=== PATIENT | female | born 1955 | race African-American/Black ===

== ENCOUNTER 2016-07-03 03:13 | Inpatient (IN) | payer MEDICAID ==
[2016-07-03] VITALS (8 sets, daily range): BP systolic 118–168; BP diastolic 74–109; PULSE 71–102; RESP 18–21; TEMP 96–98.8; O2SAT 97–100
[~2016-07-03] VITALS: Ht 152.4 cm; Wt 118.4 kg
[~2016-07-03 03:13] MED LIST: ALBU17AE26 IH; ASPI-1063 PO; ASPI81TA2 PO; BUME1TAB4 PO; BUME2TAB3 PO; COR12.5 PO; DILT180C PO; EZET1TAB35 PO; FURO-149 PO; HYDR-1115 PO; HYDR25TA4 PO; ISOS20TA8 PO; LOSA100T11 PO; LOSA50TA3 PO; METO2.5T6 PO; METO25TA6 PO; POTA20TA83 PO; RANI150T8 PO; SPIR25TA4 PO; losartan PO; metoprolol PO
[2016-07-03] MEDS ORDERED: FUROSEMIDE 40 MG/4 ML VIAL IVP ONE (03:30)
[2016-07-03] MEDS ORDERED: AZITHROMYCIN 500 MG in NS 250 ML IV ONE (04:00)
[2016-07-03 04:15] LABS: BLOOD GAS PH 7.468 (7.350-7.450)
[2016-07-03 04:16] LABS: ABG TOTAL HEMOGLOBIN 13.5 G/dL (12.0-18.0); BLOOD GAS BASE EXCESS -4.2 mmol/L (-3.0-3.0)
[2016-07-03 04:17] LABS: BLOOD GAS COHb% 0.8 % (0.5-1.5); BLOOD GAS HHB 1.6 % (0.0-6.0); BLOOD O2Hb% 97.3 % (94.0-97.0)
[2016-07-03 04:25] LABS: CALCIUM 8.7 mg/dL (8.4-11.0); CREATININE 1.1 mg/dL (0.55-1.30); POTASSIUM 3.7 mmol/L (3.5-5.1)
[2016-07-03 04:28] LABS: PROTHROMBIN TIME 22.5 SECS (9.5-12.5)
[2016-07-03 04:30] LABS: ALBUMIN 3.5 g/dL (3.4-4.8); TOTAL BILIRUBIN 3.3 mg/dL (0.0-1.0); TOTAL PROTEIN, SERUM 7.4 g/dL (6.4-8.3)
[2016-07-03] MEDS ORDERED: MORPHINE SULFATE 10 MG/ML VIAL IVP ONE (04:45)
[2016-07-03] MEDS ORDERED: AZITHROMYCIN 500 MG/VIAL (ZITHROMAX) IV ONE (05:07)
[2016-07-03 05:25] LABS: BASOPHILS # (AUTO) 0.1 K/uL (0.0-0.2); BASOPHILS % (AUTO) 1.5 % (0.0-2.0); EOSINOPHILS % (AUTO) 0.9 % (0.0-4.0); HEMATOCRIT 37.5 % (36-48); HEMOGLOBIN 11.9 g/dL (12.0-16.0); LYMPHOCYTES # (AUTO) 0.9 K/uL (1.0-5.5); MEAN CORPUSCULAR HEMOGLOBIN 29 pg (27-31); MEAN CORPUSCULAR HGB CONC 32 % (32-36); MEAN CORPUSCULAR VOLUME 92 fL (79.0-98.0); MONOCYTES # (AUTO) 0.5 K/uL (0.0-1.0); NEUTROPHILS # (AUTO) 3.4 K/uL (1.8-7.7); NEUTROPHILS % (AUTO) 68.6 % (40.0-70.0); PLATELET COUNT (AUTO) 207 K/uL (130-430); RED BLOOD CELL COUNT(AUTO) 4.07 MIL/uL (4.2-6.2); RED CELL DISTRIBUTION WIDTH 18.6 % (9.0-15.0); WHITE BLOOD COUNT (AUTO) 4.9 K/uL (4.8-10.8)
[2016-07-03] MEDS ORDERED: LOSA25TA3 PO (05:39)
[2016-07-03] MEDS ORDERED: FURO-149 PO (05:39)
[2016-07-03] MEDS: LevALBUTEROL HCL 1.25 MG/0.5 ML *CONC.* VIAL.NEB (XOPENEX CONC.) INH SCH ×3 (07:39→19:49)
[2016-07-03] MEDS ORDERED: LOSARTAN POTASSIUM 25 MG TABLET PO SCH (09:00)
[2016-07-03] MEDS: SPIRONOLACTONE 25 MG TABLET (ALDACTONE) PO SCH (09:00)
[2016-07-03] MEDS ORDERED: FUROSEMIDE 40 MG TABLET PO SCH (09:00)
[2016-07-03] MEDS: cefTRIAXone 1 GM IVPB PREMIX 50 ML IV SCH (09:00)
[2016-07-03] MEDS ORDERED: ASPIRIN 81 MG TAB.CHEW PO SCH (09:00)
[2016-07-03] MEDS ORDERED: METOLAZONE 2.5 MG TABLET PO SCH (09:00)
[2016-07-03] MEDS: CARVEDILOL 12.5 MG TABLET (COREG) PO SCH ×2 (09:59→21:45)
[2016-07-03] MEDS: POTASSIUM CHLORIDE 20 MEQ TAB.PRT.SR PO SCH (09:59)
[2016-07-03] MEDS: ASPIRIN 81 MG TAB.CHEW PO SCH (10:01)
[2016-07-03] MEDS: FUROSEMIDE 40 MG/4 ML VIAL IVP SCH ×2 (12:42→21:45)
[2016-07-03] MEDS: ONDANSETRON HCL 4 MG/2 ML VIAL IVP PRN (13:43)
[2016-07-03] MEDS ORDERED: METOLAZONE 5 MG TABLET PO ONE (14:45)
[2016-07-03] MEDS: ENOXAPARIN SODIUM 30 MG/0.3 ML SYRINGE SUBCUT SCH (21:00)
[2016-07-03] MEDS: HYDROcodone/ACETAMIN 5-325 MG TAB (NORCO/ VICODIN) PO PRN (21:47)
[2016-07-04] VITALS (9 sets, daily range): BP systolic 104–128; BP diastolic 49–77; PULSE 41–74; RESP 16–21; TEMP 96.9–98.4; O2SAT 95–100
[2016-07-04] MEDS: LevALBUTEROL HCL 1.25 MG/0.5 ML *CONC.* VIAL.NEB (XOPENEX CONC.) INH SCH ×4 (00:30→19:52)
[2016-07-04] MEDS: AZITHROMYCIN 500 MG in NS 250 ML IV SCH (04:21)
[2016-07-04] MEDS: HYDROcodone/ACETAMIN 5-325 MG TAB (NORCO/ VICODIN) PO PRN ×3 (04:21→17:50)
[2016-07-04] MEDS: cefTRIAXone 1 GM IVPB PREMIX 50 ML IV SCH (06:00)
[2016-07-04] MEDS: FUROSEMIDE 40 MG/4 ML VIAL IVP SCH (08:10)
[2016-07-04] MEDS: CARVEDILOL 12.5 MG TABLET (COREG) PO SCH ×2 (08:10→20:42)
[2016-07-04] MEDS: POTASSIUM CHLORIDE 20 MEQ TAB.PRT.SR PO SCH (08:10)
[2016-07-04] MEDS: ASPIRIN 81 MG TAB.CHEW PO SCH (08:10)
[2016-07-04] MEDS: SPIRONOLACTONE 25 MG TABLET (ALDACTONE) PO SCH (08:11)
[2016-07-04] MEDS: METOLAZONE 5 MG TABLET PO SCH (08:11)
[2016-07-04] MEDS ORDERED: LOSARTAN POTASSIUM 50 MG TABLET (COZAAR) PO ONE (10:00)
[2016-07-04] MEDS: FUROSEMIDE 100 MG in D5W 90 ML IV SCH (11:41)
[2016-07-04] MEDS ORDERED: MILK OF MAGNESIA 30 ML UDC PO ONE (13:00)
[2016-07-04 13:12] LABS: BASOPHILS % (AUTO) 0.5 % (0.0-2.0); EOSINOPHILS # (AUTO) 0.1 K/uL (0.0-0.4); LYMPHOCYTES # (AUTO) 0.7 K/uL (1.0-5.5); LYMPHOCYTES % (AUTO) 13.6 % (20.5-51.5); MEAN CORPUSCULAR HEMOGLOBIN 30 pg (27-31); MEAN CORPUSCULAR HGB CONC 32 % (32-36); MEAN CORPUSCULAR VOLUME 95 fL (79.0-98.0); MONOCYTES # (AUTO) 0.5 K/uL (0.0-1.0); MONOCYTES % (AUTO) 9.4 % (1.7-9.3); NEUTROPHILS # (AUTO) 3.6 K/uL (1.8-7.7); NEUTROPHILS % (AUTO) 74.5 % (40.0-70.0); PLATELET COUNT (AUTO) 153 K/uL (130-430); RED BLOOD CELL COUNT(AUTO) 3.68 MIL/uL (4.2-6.2); RED CELL DISTRIBUTION WIDTH 18.2 % (9.0-15.0); WHITE BLOOD COUNT (AUTO) 4.9 K/uL (4.8-10.8)
[2016-07-04 13:26] LABS: POTASSIUM 3.9 mmol/L (3.5-5.1)
[2016-07-04 13:27] LABS: CREATININE 1.17 mg/dL (0.55-1.30)
[2016-07-04] MEDS ORDERED: MILK OF MAGNESIA 30 ML UDC PO PRN (13:45)
[2016-07-04 13:52] LABS: ALBUMIN 3.2 g/dL (3.4-4.8); THYROID STIMULATING HORMONE 0.71 uIu/mL (0.34-4.82); TOTAL BILIRUBIN 1.9 mg/dL (0.0-1.0); TOTAL PROTEIN, SERUM 6.9 g/dL (6.4-8.3)
[2016-07-04] MEDS: SENNOSIDES 8.6 MG TABLET PO SCH (20:38)
[2016-07-04] MEDS: ENOXAPARIN SODIUM 30 MG/0.3 ML SYRINGE SUBCUT SCH (20:38)
[2016-07-04] MEDS: LOSARTAN POTASSIUM 50 MG TABLET (COZAAR) PO SCH (20:42)
[2016-07-05] VITALS (9 sets, daily range): BP systolic 106–127; BP diastolic 51–72; PULSE 56–86; RESP 18–20; TEMP 97.1–98.4; O2SAT 95–100; Ht 152.4 cm; Wt 118.4 kg
[2016-07-05] MEDS: LevALBUTEROL HCL 1.25 MG/0.5 ML *CONC.* VIAL.NEB (XOPENEX CONC.) INH SCH ×4 (01:25→20:07)
[2016-07-05] MEDS: AZITHROMYCIN 500 MG in NS 250 ML IV SCH (05:01)
[2016-07-05] MEDS: FUROSEMIDE 100 MG in D5W 90 ML IV SCH (05:10)
[2016-07-05] MEDS: HYDROcodone/ACETAMIN 5-325 MG TAB (NORCO/ VICODIN) PO PRN ×2 (05:27→16:27)
[2016-07-05] MEDS: cefTRIAXone 1 GM IVPB PREMIX 50 ML IV SCH (06:18)
[2016-07-05 07:21] LABS: BASOPHILS % (AUTO) 0.6 % (0.0-2.0); EOSINOPHILS # (AUTO) 0.2 K/uL (0.0-0.4); HEMATOCRIT 33.3 % (36-48); HEMOGLOBIN 10.7 g/dL (12.0-16.0); LYMPHOCYTES # (AUTO) 0.6 K/uL (1.0-5.5); LYMPHOCYTES % (AUTO) 13.3 % (20.5-51.5); MEAN CORPUSCULAR HEMOGLOBIN 31 pg (27-31); MEAN CORPUSCULAR HGB CONC 32 % (32-36); MEAN CORPUSCULAR VOLUME 95 fL (79.0-98.0); MONOCYTES # (AUTO) 0.4 K/uL (0.0-1.0); MONOCYTES % (AUTO) 7.6 % (1.7-9.3); NEUTROPHILS # (AUTO) 3.5 K/uL (1.8-7.7); NEUTROPHILS % (AUTO) 74.5 % (40.0-70.0); PLATELET COUNT (AUTO) 157 K/uL (130-430); RED BLOOD CELL COUNT(AUTO) 3.48 MIL/uL (4.2-6.2); RED CELL DISTRIBUTION WIDTH 18.6 % (9.0-15.0); WHITE BLOOD COUNT (AUTO) 4.7 K/uL (4.8-10.8)
[2016-07-05 07:46] LABS: ALBUMIN 3.1 g/dL (3.4-4.8); CALCIUM 7.9 mg/dL (8.4-11.0); CREATININE 1.27 mg/dL (0.55-1.30); POTASSIUM 4.4 mmol/L (3.5-5.1); TOTAL BILIRUBIN 1.9 mg/dL (0.0-1.0); TOTAL PROTEIN, SERUM 6.7 g/dL (6.4-8.3)
[2016-07-05] MEDS: ASPIRIN 81 MG TAB.CHEW PO SCH (08:36)
[2016-07-05] MEDS: POTASSIUM CHLORIDE 20 MEQ TAB.PRT.SR PO SCH (08:36)
[2016-07-05] MEDS: METOLAZONE 5 MG TABLET PO SCH (08:37)
[2016-07-05] MEDS: SPIRONOLACTONE 25 MG TABLET (ALDACTONE) PO SCH (08:37)
[2016-07-05] MEDS: CARVEDILOL 12.5 MG TABLET (COREG) PO SCH ×2 (08:38→21:00)
[2016-07-05] MEDS: LOSARTAN POTASSIUM 50 MG TABLET (COZAAR) PO SCH ×2 (08:38→21:00)
[2016-07-05] MEDS: SENNOSIDES 8.6 MG TABLET PO SCH (21:00)
[2016-07-05] MEDS: ENOXAPARIN SODIUM 30 MG/0.3 ML SYRINGE SUBCUT SCH (21:00)
[2016-07-06] VITALS (9 sets, daily range): BP systolic 118–131; BP diastolic 61–72; PULSE 64–82; RESP 16–20; TEMP 96.9–98.9; O2SAT 97–98
[2016-07-06] MEDS: LevALBUTEROL HCL 1.25 MG/0.5 ML *CONC.* VIAL.NEB (XOPENEX CONC.) INH SCH ×3 (01:07→19:47)
[2016-07-06] MEDS: HYDROcodone/ACETAMIN 5-325 MG TAB (NORCO/ VICODIN) PO PRN ×2 (01:25→22:46)
[2016-07-06] MEDS: FUROSEMIDE 100 MG in D5W 90 ML IV SCH ×2 (02:57→22:40)
[2016-07-06] MEDS: AZITHROMYCIN 500 MG in NS 250 ML IV SCH (05:57)
[2016-07-06] MEDS: cefTRIAXone 1 GM IVPB PREMIX 50 ML IV SCH (06:03)
[2016-07-06 06:31] LABS: CALCIUM 8.2 mg/dL (8.4-11.0); CREATININE 1.22 mg/dL (0.55-1.30); POTASSIUM 4.7 mmol/L (3.5-5.1)
[2016-07-06] MEDS: ASPIRIN 81 MG TAB.CHEW PO SCH (08:54)
[2016-07-06] MEDS: POTASSIUM CHLORIDE 20 MEQ TAB.PRT.SR PO SCH (08:54)
[2016-07-06] MEDS: CARVEDILOL 12.5 MG TABLET (COREG) PO SCH ×2 (08:54→21:00)
[2016-07-06] MEDS: SPIRONOLACTONE 25 MG TABLET (ALDACTONE) PO SCH (08:55)
[2016-07-06] MEDS: METOLAZONE 5 MG TABLET PO SCH (08:55)
[2016-07-06] MEDS: LOSARTAN POTASSIUM 50 MG TABLET (COZAAR) PO SCH ×2 (08:55→21:00)
[2016-07-06] MEDS: ENOXAPARIN SODIUM 30 MG/0.3 ML SYRINGE SUBCUT SCH (21:00)
[2016-07-06] MEDS: SENNOSIDES 8.6 MG TABLET PO SCH (21:00)
[2016-07-07 00:42] VITALS: BP 138/64; PULSE 71; RESP 18; TEMP 97; O2SAT 95
[2016-07-07] MEDS: LevALBUTEROL HCL 1.25 MG/0.5 ML *CONC.* VIAL.NEB (XOPENEX CONC.) INH SCH ×3 (01:22→16:19)
[2016-07-07 04:54] VITALS: BP 140/66; PULSE 77; RESP 18; TEMP 98.2; O2SAT 95
[2016-07-07] MEDS: AZITHROMYCIN 500 MG in NS 250 ML IV SCH (05:24)
[2016-07-07] MEDS: ONDANSETRON HCL 4 MG/2 ML VIAL IVP PRN (06:36)
[2016-07-07] MEDS: cefTRIAXone 1 GM IVPB PREMIX 50 ML IV SCH (06:36)
[2016-07-07] MEDS: HYDROcodone/ACETAMIN 5-325 MG TAB (NORCO/ VICODIN) PO PRN ×3 (06:59→21:25)
[2016-07-07] MEDS: LOSARTAN POTASSIUM 50 MG TABLET (COZAAR) PO SCH ×2 (09:00→20:33)
[2016-07-07] MEDS: SPIRONOLACTONE 25 MG TABLET (ALDACTONE) PO SCH (09:00)
[2016-07-07] MEDS: CARVEDILOL 12.5 MG TABLET (COREG) PO SCH ×2 (09:00→20:32)
[2016-07-07] MEDS: POTASSIUM CHLORIDE 20 MEQ TAB.PRT.SR PO SCH (09:00)
[2016-07-07] MEDS: METOLAZONE 5 MG TABLET PO SCH (09:00)
[2016-07-07] MEDS: ASPIRIN 81 MG TAB.CHEW PO SCH (09:00)
[2016-07-07 12:00] VITALS: BP 117/79; PULSE 77; RESP 18; TEMP 97.4; O2SAT 100
[2016-07-07 16:00] VITALS: BP 117/76; PULSE 72; RESP 18; TEMP 97.8; O2SAT 100
[2016-07-07] MEDS: FUROSEMIDE 100 MG in D5W 90 ML IV SCH (18:47)
[2016-07-07 19:30] VITALS: BP 114/49; PULSE 65; RESP 18; TEMP 98.2; O2SAT 100
[2016-07-07] MEDS: SENNOSIDES 8.6 MG TABLET PO SCH (20:33)
[2016-07-07] MEDS: ENOXAPARIN SODIUM 30 MG/0.3 ML SYRINGE SUBCUT SCH (20:33)
[2016-07-08 00:57] VITALS: BP 116/74; PULSE 67; RESP 17; TEMP 98.7; O2SAT 100
[2016-07-08] MEDS: HYDROcodone/ACETAMIN 5-325 MG TAB (NORCO/ VICODIN) PO PRN ×3 (03:13→21:10)
[2016-07-08 04:00] VITALS: BP 115/76; PULSE 72; RESP 18; TEMP 97.8; O2SAT 100
[2016-07-08] MEDS: AZITHROMYCIN 500 MG in NS 250 ML IV SCH (04:04)
[2016-07-08] MEDS: LevALBUTEROL HCL 1.25 MG/0.5 ML *CONC.* VIAL.NEB (XOPENEX CONC.) INH SCH ×4 (05:08→19:00)
[2016-07-08] MEDS: cefTRIAXone 1 GM IVPB PREMIX 50 ML IV SCH (06:00)
[2016-07-08 08:00] VITALS: BP 126/82; PULSE 83; RESP 18; TEMP 97.5; O2SAT 97
[2016-07-08] MEDS: CARVEDILOL 12.5 MG TABLET (COREG) PO SCH (08:59)
[2016-07-08] MEDS: ASPIRIN 81 MG TAB.CHEW PO SCH (08:59)
[2016-07-08] MEDS: SPIRONOLACTONE 25 MG TABLET (ALDACTONE) PO SCH (08:59)
[2016-07-08] MEDS: METOLAZONE 5 MG TABLET PO SCH (09:00)
[2016-07-08] MEDS: POTASSIUM CHLORIDE 20 MEQ TAB.PRT.SR PO SCH (09:00)
[2016-07-08] MEDS: LOSARTAN POTASSIUM 50 MG TABLET (COZAAR) PO SCH ×2 (09:00→21:00)
[2016-07-08 09:49] LABS: MEAN CORPUSCULAR VOLUME 96 fL (79.0-98.0); PLATELET COUNT (AUTO) 164 K/uL (130-430)
[2016-07-08 09:51] LABS: HEMATOCRIT 33.8 % (36-48); HEMOGLOBIN 10.8 g/dL (12.0-16.0); MEAN CORPUSCULAR HEMOGLOBIN 31 pg (27-31); MEAN CORPUSCULAR HGB CONC 32 % (32-36); RED BLOOD CELL COUNT(AUTO) 3.53 MIL/uL (4.2-6.2); RED CELL DISTRIBUTION WIDTH 18.1 % (9.0-15.0); WHITE BLOOD COUNT (AUTO) 4.6 K/uL (4.8-10.8)
[2016-07-08 09:54] LABS: ALBUMIN 3.3 g/dL (3.4-4.8); CALCIUM 8.5 mg/dL (8.4-11.0); CREATININE 1.08 mg/dL (0.55-1.30); POTASSIUM 4.2 mmol/L (3.5-5.1); TOTAL BILIRUBIN 1.4 mg/dL (0.0-1.0); TOTAL PROTEIN, SERUM 7.1 g/dL (6.4-8.3)
[2016-07-08 10:11] LABS: BAND % (MANUAL) 0 % (0-6); LYMPHOCYTES % (MANUAL) 18 % (20-46)
[2016-07-08 10:12] LABS: BASOPHILS % (MANUAL) 0 % (0-2); EOSINOPHILS % (MANUAL) 2 % (0-7); MONOCYTES % (MANUAL) 10 % (0-11)
[2016-07-08 12:00] VITALS: BP 124/76; PULSE 80; RESP 18; TEMP 97.2; O2SAT 96
[2016-07-08 16:00] VITALS: BP 135/77; PULSE 80; RESP 18; TEMP 97.6; O2SAT 94
[2016-07-08] MEDS: FUROSEMIDE 100 MG in D5W 90 ML IV SCH (17:56)
[2016-07-08 19:30] VITALS: BP 131/61; PULSE 74; RESP 18; TEMP 97.2; TEMP 97.8; O2SAT 100
[2016-07-08] MEDS: CARVEDILOL 25 MG TABLET (COREG) PO SCH (21:00)
[2016-07-08] MEDS: ENOXAPARIN SODIUM 30 MG/0.3 ML SYRINGE SUBCUT SCH (21:00)
[2016-07-08] MEDS: SENNOSIDES 8.6 MG TABLET PO SCH (21:00)
[2016-07-09 00:40] VITALS: BP 132/66; PULSE 76; RESP 16; TEMP 97.6; O2SAT 98
[2016-07-09] MEDS: HYDROcodone/ACETAMIN 5-325 MG TAB (NORCO/ VICODIN) PO PRN ×3 (03:14→20:52)
[2016-07-09 04:00] VITALS: BP 130/65; PULSE 75; RESP 18; TEMP 97.8; O2SAT 100
[2016-07-09] MEDS: LevALBUTEROL HCL 1.25 MG/0.5 ML *CONC.* VIAL.NEB (XOPENEX CONC.) INH SCH ×4 (04:18→19:00)
[2016-07-09] MEDS: cefTRIAXone 1 GM IVPB PREMIX 50 ML IV SCH (06:18)
[2016-07-09 07:02] LABS: BASOPHILS % (AUTO) 0.8 % (0.0-2.0); EOSINOPHILS # (AUTO) 0.2 K/uL (0.0-0.4); EOSINOPHILS % (AUTO) 4.2 % (0.0-4.0); HEMATOCRIT 32.9 % (36-48); HEMOGLOBIN 10.4 g/dL (12.0-16.0); LYMPHOCYTES # (AUTO) 0.8 K/uL (1.0-5.5); LYMPHOCYTES % (AUTO) 17.7 % (20.5-51.5); MEAN CORPUSCULAR HEMOGLOBIN 30 pg (27-31); MEAN CORPUSCULAR HGB CONC 32 % (32-36); MEAN CORPUSCULAR VOLUME 95 fL (79.0-98.0); MONOCYTES # (AUTO) 0.6 K/uL (0.0-1.0); MONOCYTES % (AUTO) 12.6 % (1.7-9.3); NEUTROPHILS # (AUTO) 2.8 K/uL (1.8-7.7); NEUTROPHILS % (AUTO) 64.7 % (40.0-70.0); PLATELET COUNT (AUTO) 163 K/uL (130-430); RED BLOOD CELL COUNT(AUTO) 3.45 MIL/uL (4.2-6.2); RED CELL DISTRIBUTION WIDTH 18.9 % (9.0-15.0); WHITE BLOOD COUNT (AUTO) 4.4 K/uL (4.8-10.8)
[2016-07-09 07:14] LABS: POTASSIUM 3.8 mmol/L (3.5-5.1)
[2016-07-09 07:15] LABS: ALBUMIN 3.2 g/dL (3.4-4.8); CALCIUM 8.6 mg/dL (8.4-11.0); CREATININE 0.99 mg/dL (0.55-1.30); TOTAL BILIRUBIN 1.5 mg/dL (0.0-1.0)
[2016-07-09 08:00] VITALS: BP 146/64; PULSE 96; RESP 18; TEMP 97.6; O2SAT 98
[2016-07-09] MEDS: METOLAZONE 5 MG TABLET PO SCH (09:00)
[2016-07-09] MEDS: SPIRONOLACTONE 25 MG TABLET (ALDACTONE) PO SCH (09:06)
[2016-07-09] MEDS: ASPIRIN 81 MG TAB.CHEW PO SCH (09:07)
[2016-07-09] MEDS: CARVEDILOL 25 MG TABLET (COREG) PO SCH ×2 (09:08→20:50)
[2016-07-09] MEDS: POTASSIUM CHLORIDE 20 MEQ TAB.PRT.SR PO SCH (09:08)
[2016-07-09] MEDS: LOSARTAN POTASSIUM 50 MG TABLET (COZAAR) PO SCH ×2 (09:08→20:51)
[2016-07-09] MEDS ORDERED: FUROSEMIDE 40 MG/4 ML VIAL IVP ONE (11:45)
[2016-07-09 12:00] VITALS: BP 133/73; PULSE 76; RESP 18; TEMP 98.8; O2SAT 95
[2016-07-09 16:00] VITALS: BP 138/82; PULSE 73; RESP 18; TEMP 98; O2SAT 100
[2016-07-09 19:30] VITALS: BP 136/85; PULSE 71; RESP 18; TEMP 98; O2SAT 100
[2016-07-09] MEDS: FUROSEMIDE 40 MG/4 ML VIAL IVP SCH (20:17)
[2016-07-09] MEDS: ENOXAPARIN SODIUM 30 MG/0.3 ML SYRINGE SUBCUT SCH (20:51)
[2016-07-09] MEDS: SENNOSIDES 8.6 MG TABLET PO SCH (20:52)
[2016-07-10] VITALS (9 sets, daily range): BP systolic 120–150; BP diastolic 65–101; PULSE 67–92; RESP 16–21; TEMP 97–98.7; O2SAT 94–99
[2016-07-10] MEDS: LevALBUTEROL HCL 1.25 MG/0.5 ML *CONC.* VIAL.NEB (XOPENEX CONC.) INH SCH ×4 (01:15→19:54)
[2016-07-10] MEDS ORDERED: LevALBUTEROL HCL 1.25 MG/0.5 ML *CONC.* VIAL.NEB (XOPENEX CONC.) INH ONE (01:18)
[2016-07-10] MEDS: HYDROcodone/ACETAMIN 5-325 MG TAB (NORCO/ VICODIN) PO PRN ×3 (05:45→18:23)
[2016-07-10] MEDS: cefTRIAXone 1 GM IVPB PREMIX 50 ML IV SCH (05:57)
[2016-07-10 07:26] LABS: CALCIUM 8.5 mg/dL (8.4-11.0); CREATININE 1.1 mg/dL (0.55-1.30)
[2016-07-10] MEDS: POTASSIUM CHLORIDE 20 MEQ TAB.PRT.SR PO SCH (08:46)
[2016-07-10] MEDS: CARVEDILOL 25 MG TABLET (COREG) PO SCH ×2 (08:46→21:00)
[2016-07-10] MEDS: ASPIRIN 81 MG TAB.CHEW PO SCH (08:47)
[2016-07-10] MEDS: FUROSEMIDE 40 MG/4 ML VIAL IVP SCH ×2 (08:47→22:06)
[2016-07-10] MEDS: LOSARTAN POTASSIUM 50 MG TABLET (COZAAR) PO SCH ×2 (08:47→21:00)
[2016-07-10] MEDS: SPIRONOLACTONE 25 MG TABLET (ALDACTONE) PO SCH (08:47)
[2016-07-10] MEDS: METOLAZONE 5 MG TABLET PO SCH (08:48)
[2016-07-10] MEDS: ENOXAPARIN SODIUM 30 MG/0.3 ML SYRINGE SUBCUT SCH (21:00)
[2016-07-10] MEDS: SENNOSIDES 8.6 MG TABLET PO SCH (21:18)
[2016-07-11] VITALS (9 sets, daily range): BP systolic 122–148; BP diastolic 68–88; PULSE 70–89; RESP 17–20; TEMP 97.6–98.8; O2SAT 95–100
[2016-07-11] MEDS: LevALBUTEROL HCL 1.25 MG/0.5 ML *CONC.* VIAL.NEB (XOPENEX CONC.) INH SCH ×4 (00:32→21:15)
[2016-07-11] MEDS: HYDROcodone/ACETAMIN 5-325 MG TAB (NORCO/ VICODIN) PO PRN ×3 (01:36→15:41)
[2016-07-11] MEDS: cefTRIAXone 1 GM IVPB PREMIX 50 ML IV SCH (06:20)
[2016-07-11 08:19] LABS: ALBUMIN 3.1 g/dL (3.4-4.8); CALCIUM 8.6 mg/dL (8.4-11.0); CREATININE 0.97 mg/dL (0.55-1.30); TOTAL BILIRUBIN 1.5 mg/dL (0.0-1.0)
[2016-07-11] MEDS: ASPIRIN 81 MG TAB.CHEW PO SCH (09:03)
[2016-07-11] MEDS: LOSARTAN POTASSIUM 50 MG TABLET (COZAAR) PO SCH ×2 (09:04→21:23)
[2016-07-11] MEDS: CARVEDILOL 25 MG TABLET (COREG) PO SCH ×2 (09:04→21:23)
[2016-07-11] MEDS: SPIRONOLACTONE 25 MG TABLET (ALDACTONE) PO SCH (09:05)
[2016-07-11] MEDS: METOLAZONE 5 MG TABLET PO SCH ×2 (09:05→21:22)
[2016-07-11] MEDS: POTASSIUM CHLORIDE 20 MEQ TAB.PRT.SR PO SCH (09:05)
[2016-07-11] MEDS: FUROSEMIDE 40 MG/4 ML VIAL IVP SCH ×2 (09:06→23:00)
[2016-07-11] MEDS: ENOXAPARIN SODIUM 30 MG/0.3 ML SYRINGE SUBCUT SCH (21:00)
[2016-07-11] MEDS: SENNOSIDES 8.6 MG TABLET PO SCH (21:23)
[2016-07-12] MEDS: LevALBUTEROL HCL 1.25 MG/0.5 ML *CONC.* VIAL.NEB (XOPENEX CONC.) INH SCH ×4 (01:41→20:09)
[2016-07-12] MEDS: HYDROcodone/ACETAMIN 5-325 MG TAB (NORCO/ VICODIN) PO PRN ×3 (04:37→19:50)
[2016-07-12 04:55] VITALS: BP 127/90; PULSE 78; RESP 18; TEMP 96.8; O2SAT 100
[2016-07-12] MEDS: cefTRIAXone 1 GM IVPB PREMIX 50 ML IV SCH (06:49)
[2016-07-12 07:50] LABS: CALCIUM 8.8 mg/dL (8.4-11.0); CREATININE 0.86 mg/dL (0.55-1.30); POTASSIUM 3.7 mmol/L (3.5-5.1)
[2016-07-12] MEDS: POTASSIUM CHLORIDE 20 MEQ TAB.PRT.SR PO SCH (09:00)
[2016-07-12] MEDS: SPIRONOLACTONE 25 MG TABLET (ALDACTONE) PO SCH (11:07)
[2016-07-12] MEDS: ASPIRIN 81 MG TAB.CHEW PO SCH (11:08)
[2016-07-12] MEDS: CARVEDILOL 25 MG TABLET (COREG) PO SCH ×2 (11:08→21:11)
[2016-07-12] MEDS: METOLAZONE 5 MG TABLET PO SCH ×2 (11:08→21:11)
[2016-07-12] MEDS: FUROSEMIDE 40 MG/4 ML VIAL IVP SCH ×2 (11:09→22:10)
[2016-07-12] MEDS: LOSARTAN POTASSIUM 50 MG TABLET (COZAAR) PO SCH ×2 (11:11→21:11)
[2016-07-12 12:29] VITALS: BP 139/62; PULSE 80; RESP 24; TEMP 98.5; O2SAT 95
[2016-07-12 16:04] VITALS: BP 132/87; PULSE 74; RESP 20; TEMP 98.6; O2SAT 97
[2016-07-12 19:50] VITALS: BP 130/77; PULSE 78; RESP 18; TEMP 97.7; O2SAT 98
[2016-07-12] MEDS: ENOXAPARIN SODIUM 30 MG/0.3 ML SYRINGE SUBCUT SCH (21:00)
[2016-07-12] MEDS: SENNOSIDES 8.6 MG TABLET PO SCH (21:11)
[2016-07-13] VITALS (8 sets, daily range): BP systolic 121–148; BP diastolic 67–97; PULSE 60–84; RESP 17–18; TEMP 96.4–98.6; O2SAT 97–100
[2016-07-13] MEDS: LevALBUTEROL HCL 1.25 MG/0.5 ML *CONC.* VIAL.NEB (XOPENEX CONC.) INH SCH ×4 (01:16→20:11)
[2016-07-13] MEDS: cefTRIAXone 1 GM IVPB PREMIX 50 ML IV SCH (06:25)
[2016-07-13] MEDS: HYDROcodone/ACETAMIN 5-325 MG TAB (NORCO/ VICODIN) PO PRN (06:52)
[2016-07-13] MEDS: SPIRONOLACTONE 25 MG TABLET (ALDACTONE) PO SCH (09:00)
[2016-07-13] MEDS: METOLAZONE 5 MG TABLET PO SCH ×2 (09:14→21:24)
[2016-07-13] MEDS: ASPIRIN 81 MG TAB.CHEW PO SCH (09:21)
[2016-07-13] MEDS: CARVEDILOL 25 MG TABLET (COREG) PO SCH ×2 (09:21→21:23)
[2016-07-13] MEDS: FUROSEMIDE 40 MG/4 ML VIAL IVP SCH ×2 (09:21→21:25)
[2016-07-13] MEDS: POTASSIUM CHLORIDE 20 MEQ TAB.PRT.SR PO SCH (09:22)
[2016-07-13] MEDS: LOSARTAN POTASSIUM 50 MG TABLET (COZAAR) PO SCH ×2 (09:22→21:23)
[2016-07-13] MEDS: ENOXAPARIN SODIUM 30 MG/0.3 ML SYRINGE SUBCUT SCH (21:00)
[2016-07-13] MEDS: SENNOSIDES 8.6 MG TABLET PO SCH (21:22)
[2016-07-14] VITALS (9 sets, daily range): BP systolic 130–146; BP diastolic 72–100; PULSE 76–88; RESP 18–20; TEMP 96.9–98.2; O2SAT 100
[2016-07-14] MEDS: LevALBUTEROL HCL 1.25 MG/0.5 ML *CONC.* VIAL.NEB (XOPENEX CONC.) INH SCH ×4 (01:37→20:16)
[2016-07-14] MEDS: cefTRIAXone 1 GM IVPB PREMIX 50 ML IV SCH (06:02)
[2016-07-14 08:24] LABS: BASOPHILS % (AUTO) 1.1 % (0.0-2.0); EOSINOPHILS # (AUTO) 0.1 K/uL (0.0-0.4); EOSINOPHILS % (AUTO) 2.4 % (0.0-4.0); HEMATOCRIT 32.1 % (36-48); HEMOGLOBIN 10.2 g/dL (12.0-16.0); LYMPHOCYTES # (AUTO) 0.6 K/uL (1.0-5.5); LYMPHOCYTES % (AUTO) 15.1 % (20.5-51.5); MEAN CORPUSCULAR HEMOGLOBIN 30 pg (27-31); MEAN CORPUSCULAR HGB CONC 32 % (32-36); MEAN CORPUSCULAR VOLUME 95 fL (79.0-98.0); MONOCYTES # (AUTO) 0.5 K/uL (0.0-1.0); MONOCYTES % (AUTO) 10.8 % (1.7-9.3); NEUTROPHILS # (AUTO) 3.1 K/uL (1.8-7.7); NEUTROPHILS % (AUTO) 70.6 % (40.0-70.0); PLATELET COUNT (AUTO) 144 K/uL (130-430); RED BLOOD CELL COUNT(AUTO) 3.39 MIL/uL (4.2-6.2); RED CELL DISTRIBUTION WIDTH 18.3 % (9.0-15.0); WHITE BLOOD COUNT (AUTO) 4.3 K/uL (4.8-10.8)
[2016-07-14 08:36] LABS: ALBUMIN 3.1 g/dL (3.4-4.8); CREATININE 0.95 mg/dL (0.55-1.30); POTASSIUM 3.6 mmol/L (3.5-5.1); TOTAL BILIRUBIN 1.5 mg/dL (0.0-1.0); TOTAL PROTEIN, SERUM 7.1 g/dL (6.4-8.3)
[2016-07-14] MEDS: POTASSIUM CHLORIDE 20 MEQ TAB.PRT.SR PO SCH (08:58)
[2016-07-14] MEDS: ASPIRIN 81 MG TAB.CHEW PO SCH (09:02)
[2016-07-14] MEDS: CARVEDILOL 25 MG TABLET (COREG) PO SCH ×2 (09:02→22:18)
[2016-07-14] MEDS: SPIRONOLACTONE 25 MG TABLET (ALDACTONE) PO SCH (09:02)
[2016-07-14] MEDS: LOSARTAN POTASSIUM 50 MG TABLET (COZAAR) PO SCH ×2 (09:03→22:18)
[2016-07-14] MEDS: FUROSEMIDE 40 MG/4 ML VIAL IVP SCH (09:03)
[2016-07-14] MEDS: METOLAZONE 5 MG TABLET PO SCH ×2 (10:00→22:19)
[2016-07-14] MEDS: HYDROcodone/ACETAMIN 5-325 MG TAB (NORCO/ VICODIN) PO PRN ×2 (11:04→22:25)
[2016-07-14] MEDS: ENOXAPARIN SODIUM 30 MG/0.3 ML SYRINGE SUBCUT SCH ×2 (22:16→22:33)
[2016-07-14] MEDS: SENNOSIDES 8.6 MG TABLET PO SCH (22:16)
[2016-07-14] MEDS: FUROSEMIDE 40 MG TABLET PO SCH (22:19)
[2016-07-15] VITALS (7 sets, daily range): BP systolic 119–137; BP diastolic 75–88; PULSE 78–88; RESP 16–20; TEMP 97–98.6; O2SAT 93–100
[2016-07-15] MEDS: LevALBUTEROL HCL 1.25 MG/0.5 ML *CONC.* VIAL.NEB (XOPENEX CONC.) INH SCH ×4 (00:30→19:55)
[2016-07-15] MEDS: cefTRIAXone 1 GM IVPB PREMIX 50 ML IV SCH (06:41)
[2016-07-15] MEDS: HYDROcodone/ACETAMIN 5-325 MG TAB (NORCO/ VICODIN) PO PRN ×2 (06:52→22:10)
[2016-07-15] MEDS: POTASSIUM CHLORIDE 20 MEQ TAB.PRT.SR PO SCH (08:49)
[2016-07-15] MEDS: SPIRONOLACTONE 25 MG TABLET (ALDACTONE) PO SCH (08:50)
[2016-07-15] MEDS: LOSARTAN POTASSIUM 50 MG TABLET (COZAAR) PO SCH ×2 (08:51→22:09)
[2016-07-15] MEDS: CARVEDILOL 25 MG TABLET (COREG) PO SCH ×2 (08:52→22:09)
[2016-07-15] MEDS: FUROSEMIDE 40 MG TABLET PO SCH ×2 (08:52→21:00)
[2016-07-15] MEDS: ASPIRIN 81 MG TAB.CHEW PO SCH (08:52)
[2016-07-15] MEDS: METOLAZONE 5 MG TABLET PO SCH ×2 (10:09→22:09)
[2016-07-15] MEDS: SENNOSIDES 8.6 MG TABLET PO SCH (22:09)
[2016-07-16] VITALS (13 sets, daily range): BP systolic 107–146; BP diastolic 61–83; PULSE 61–87; RESP 16–20; TEMP 97–98.6; O2SAT 91–100
[2016-07-16] MEDS: LevALBUTEROL HCL 1.25 MG/0.5 ML *CONC.* VIAL.NEB (XOPENEX CONC.) INH SCH ×4 (01:17→20:09)
[2016-07-16] MEDS: CARVEDILOL 25 MG TABLET (COREG) PO SCH ×2 (09:42→21:39)
[2016-07-16] MEDS: POTASSIUM CHLORIDE 20 MEQ TAB.PRT.SR PO SCH (09:42)
[2016-07-16] MEDS: METOLAZONE 5 MG TABLET PO SCH ×2 (09:42→21:42)
[2016-07-16] MEDS: ASPIRIN 81 MG TAB.CHEW PO SCH (09:42)
[2016-07-16] MEDS: FUROSEMIDE 40 MG TABLET PO SCH ×2 (09:43→21:40)
[2016-07-16] MEDS: SPIRONOLACTONE 25 MG TABLET (ALDACTONE) PO SCH (09:44)
[2016-07-16] MEDS: LOSARTAN POTASSIUM 50 MG TABLET (COZAAR) PO SCH ×2 (09:44→21:39)
[2016-07-16] MEDS: HYDROcodone/ACETAMIN 5-325 MG TAB (NORCO/ VICODIN) PO PRN ×2 (11:16→21:26)
[2016-07-16] MEDS: ENOXAPARIN SODIUM 30 MG/0.3 ML SYRINGE SUBCUT SCH (21:41)
[2016-07-16] MEDS: SENNOSIDES 8.6 MG TABLET PO SCH (21:41)
[2016-07-17] VITALS (9 sets, daily range): BP systolic 109–128; BP diastolic 63–84; PULSE 64–79; RESP 18–20; TEMP 96.6–99.3; O2SAT 97–100
[2016-07-17] MEDS: LevALBUTEROL HCL 1.25 MG/0.5 ML *CONC.* VIAL.NEB (XOPENEX CONC.) INH SCH ×4 (01:40→20:04)
[2016-07-17] MEDS: HYDROcodone/ACETAMIN 5-325 MG TAB (NORCO/ VICODIN) PO PRN ×2 (06:34→12:24)
[2016-07-17] MEDS: POTASSIUM CHLORIDE 20 MEQ TAB.PRT.SR PO SCH (08:45)
[2016-07-17] MEDS: ASPIRIN 81 MG TAB.CHEW PO SCH (08:45)
[2016-07-17] MEDS: SPIRONOLACTONE 25 MG TABLET (ALDACTONE) PO SCH (08:45)
[2016-07-17] MEDS: CARVEDILOL 25 MG TABLET (COREG) PO SCH ×2 (08:46→21:49)
[2016-07-17] MEDS: LOSARTAN POTASSIUM 50 MG TABLET (COZAAR) PO SCH ×2 (08:46→21:48)
[2016-07-17] MEDS: FUROSEMIDE 40 MG TABLET PO SCH ×2 (08:47→21:50)
[2016-07-17 08:53] LABS: BASOPHILS % (AUTO) 1.2 % (0.0-2.0); EOSINOPHILS # (AUTO) 0.1 K/uL (0.0-0.4); EOSINOPHILS % (AUTO) 3.7 % (0.0-4.0); HEMOGLOBIN 9.8 g/dL (12.0-16.0); LYMPHOCYTES # (AUTO) 0.6 K/uL (1.0-5.5); LYMPHOCYTES % (AUTO) 15.7 % (20.5-51.5); MEAN CORPUSCULAR HEMOGLOBIN 30 pg (27-31); MEAN CORPUSCULAR HGB CONC 32 % (32-36); MEAN CORPUSCULAR VOLUME 94 fL (79.0-98.0); MONOCYTES # (AUTO) 0.5 K/uL (0.0-1.0); NEUTROPHILS # (AUTO) 2.5 K/uL (1.8-7.7); NEUTROPHILS % (AUTO) 66.4 % (40.0-70.0); PLATELET COUNT (AUTO) 150 K/uL (130-430); RED BLOOD CELL COUNT(AUTO) 3.31 MIL/uL (4.2-6.2); RED CELL DISTRIBUTION WIDTH 18.3 % (9.0-15.0); WHITE BLOOD COUNT (AUTO) 3.7 K/uL (4.8-10.8)
[2016-07-17] MEDS: METOLAZONE 5 MG TABLET PO SCH ×2 (09:06→21:49)
[2016-07-17 09:09] LABS: CALCIUM 8.5 mg/dL (8.4-11.0); CREATININE 1.09 mg/dL (0.55-1.30); POTASSIUM 3.4 mmol/L (3.5-5.1)
[2016-07-17] MEDS ORDERED: POTASSIUM CHLORIDE 20 MEQ TAB.PRT.SR PO ONE (16:15)
[2016-07-17] MEDS: ENOXAPARIN SODIUM 30 MG/0.3 ML SYRINGE SUBCUT SCH (21:00)
[2016-07-17] MEDS: SENNOSIDES 8.6 MG TABLET PO SCH (21:00)
[2016-07-18] VITALS (13 sets, daily range): BP systolic 127–141; BP diastolic 64–73; PULSE 54–84; RESP 18–21; TEMP 97.6–99.4; O2SAT 99–100
[2016-07-18] MEDS: LevALBUTEROL HCL 1.25 MG/0.5 ML *CONC.* VIAL.NEB (XOPENEX CONC.) INH SCH ×3 (01:30→13:31)
[2016-07-18] MEDS: POTASSIUM CHLORIDE 20 MEQ TAB.PRT.SR PO SCH (09:47)
[2016-07-18] MEDS: HYDROcodone/ACETAMIN 5-325 MG TAB (NORCO/ VICODIN) PO PRN ×2 (09:48→16:03)
[2016-07-18] MEDS: METOLAZONE 5 MG TABLET PO SCH (09:48)
[2016-07-18] MEDS: SPIRONOLACTONE 25 MG TABLET (ALDACTONE) PO SCH (09:49)
[2016-07-18] MEDS: ASPIRIN 81 MG TAB.CHEW PO SCH (09:49)
[2016-07-18] MEDS: CARVEDILOL 25 MG TABLET (COREG) PO SCH (09:49)
[2016-07-18] MEDS: LOSARTAN POTASSIUM 50 MG TABLET (COZAAR) PO SCH (09:50)
[2016-07-18] MEDS: FUROSEMIDE 40 MG TABLET PO SCH (09:50)
== END 2016-07-18 20:00 | DRG 194 ==
LOC: SED 03:13 → STU 05:36 → SMU 07-11 10:06
PROVIDERS: ADMIT Family Medicine; ATTEND Family Medicine
PROC: 02HV33Z Insertion of Infusion Device into Superior Vena Cava, Percutaneous Approach (ICD-10-PCS; 2016-07-03)
PROC: 5A09557 Assistance with Respiratory Ventilation, Greater than 96 Consecutive Hours, Continuous Positive Airway Pressure (ICD-10-PCS; principal; 2016-07-05)
DX: I13.0 Hypertensive heart and chronic kidney disease with heart failure and stage 1 through stage 4 chronic kidney disease, or unspecified chronic kidney disease (principal); J18.9 Pneumonia, unspecified organism; I42.0 Dilated cardiomyopathy; Z68.42 Body mass index [BMI] 45.0-49.9, adult; G81.94 Hemiplegia, unspecified affecting left nondominant side; J20.9 Acute bronchitis, unspecified; I50.43 Acute on chronic combined systolic (congestive) and diastolic (congestive) heart failure; E66.01 Morbid (severe) obesity due to excess calories; M19.90 Unspecified osteoarthritis, unspecified site; G47.33 Obstructive sleep apnea (adult) (pediatric); G56.00 Carpal tunnel syndrome, unspecified upper limb; J44.9 Chronic obstructive pulmonary disease, unspecified; J45.909 Unspecified asthma, uncomplicated; N18.9 Chronic kidney disease, unspecified; Z88.6 Allergy status to analgesic agent; Z86.73 Personal history of transient ischemic attack (TIA), and cerebral infarction without residual deficits; Z88.8 Allergy status to other drugs, medicaments and biological substances; Z79.82 Long term (current) use of aspirin; Z79.899 Other long term (current) drug therapy; D64.9 Anemia, unspecified
CPT/HCPCS: 36415; 36600; 71010; 71020-TC; 80048; 80053; 82803-TC; 83605; 83735-TC; 83880; 84443-TC; 84484; 85007; 85025; 85027; 85610-TC; 85730-TC; 87040-TC; 87081; 87210-TC; 93005; 93306; 94640; 94660; 94760; 96365; 96368; 96375; 97110-GP; 97116-GP; 97530-GP; 99285; C1751; J0456; J0696; J1650; J1940; J1956; J2270; J2405; J7050; J7060

== ENCOUNTER 2016-07-27 19:53 | Inpatient (IN) | payer MEDICAID ==
[~2016-07-27] VITALS: Ht 157.5 cm; Wt 127.7 kg
[2016-07-27 19:53] VITALS: BP 140/90; PULSE 74; RESP 23; TEMP 97.5; O2SAT 96
[~2016-07-27 19:53] MED LIST changes: +LOSA25TA3 PO
--- NOTE | 2016-07-27 19:53 | NUR ---
Pt came in by BLS for multiple complaints. Pt states that she was just discharged for cellulitis in bilateral legs. Pt states her legs are 10/10 pain. Pt has +4 pedal edema. Good CMS in her legs. Lung sounds clear in all lobes. Pt is on NC on 2LPM. No signs of distress. 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 No other injuries or complaints mentioned/noted. No distress noted. Addendum: 07/27/16 at 2047 by VAZQUEZ ATIF x4.
--- NOTE | 2016-07-27 19:53 | NUR ---
Placed in room 6 . Placed on cafeteria monitor, blood pressure machine and pulse oximeter. To gown for exam. Side rails up. Report given to Bora WHITT. Placed by Ramila WHITT.
--- NOTE | 2016-07-27 19:58 | NUR ---
Pt states she does not want any blood drawn or IVs started. Explained that she can't properly be treated if she does not allow procedures to be done. Pt still refused. Dr. Steward made aware.
[2016-07-27] MEDS ORDERED: IPRA3AMP9 INH ×2 (20:20→20:21)
[2016-07-27] MEDS ORDERED: MAGN400O4 PO (20:21)
[2016-07-27] MEDS ORDERED: HYDR-1189 PO (20:23)
[2016-07-27] MEDS ORDERED: SENN8.6T19 PO (20:24)
[2016-07-27] MEDS ORDERED: ASCO500T20 PO (20:25)
[2016-07-27] MEDS ORDERED: ZIN220 PO (20:26)
[2016-07-27] MEDS ORDERED: PROSTAT PO (20:26)
--- NOTE | 2016-07-27 21:50 | NUR ---
Marija simms in [facility] - 07/28/16 at 0143 by VAZQUEZ ERNESTINA Steward at bedside examining patient.
--- NOTE | 2016-07-27 21:55 | NUR ---
ER at bedside examining patient.
[2016-07-27] MEDS ORDERED: HYDROcodone/ACETAMIN 7.5-325 MG TAB PO ONE (22:00)
[2016-07-27] MEDS ORDERED: LORazepam 1 MG TABLET PO ONE (22:00)
--- NOTE | 2016-07-27 22:00 | NUR ---
Pt is resting comfortably in bed. Vitals WNL. Will continue to monitor via cardiac rehab nurse. No distress noted.
--- NOTE | 2016-07-27 22:30 | NUR ---
Pt refused Ativan. made aware.
[2016-07-27 22:33] LABS: BASOPHILS # (AUTO) 0.1 K/uL (0.0-0.2); BASOPHILS % (AUTO) 2.6 % (0.0-2.0); EOSINOPHILS # (AUTO) 0.1 K/uL (0.0-0.4); EOSINOPHILS % (AUTO) 2.3 % (0.0-4.0); HEMOGLOBIN 11.4 g/dL (12.0-16.0); LYMPHOCYTES # (AUTO) 0.7 K/uL (1.0-5.5); LYMPHOCYTES % (AUTO) 15.3 % (20.5-51.5); MEAN CORPUSCULAR HEMOGLOBIN 31 pg (27-31); MEAN CORPUSCULAR HGB CONC 32 % (32-36); MEAN CORPUSCULAR VOLUME 96 fL (79.0-98.0); MONOCYTES # (AUTO) 0.6 K/uL (0.0-1.0); MONOCYTES % (AUTO) 13.5 % (1.7-9.3); NEUTROPHILS # (AUTO) 2.9 K/uL (1.8-7.7); NEUTROPHILS % (AUTO) 66.3 % (40.0-70.0); PLATELET COUNT (AUTO) 206 K/uL (130-430); RED BLOOD CELL COUNT(AUTO) 3.75 MIL/uL (4.2-6.2); RED CELL DISTRIBUTION WIDTH 18.1 % (9.0-15.0); WHITE BLOOD COUNT (AUTO) 4.4 K/uL (4.8-10.8)
[2016-07-27 22:36] LABS: INR 1.4 (0.8-1.2); PROTHROMBIN TIME 15.6 SECS (9.5-12.5)
[2016-07-27 22:58] LABS: CREATININE 1.21 mg/dL (0.55-1.30); POTASSIUM 3.6 mmol/L (3.5-5.1)
[2016-07-27 23:14] LABS: ALBUMIN 3.2 g/dL (3.4-4.8); TOTAL BILIRUBIN 1.7 mg/dL (0.0-1.0); TOTAL PROTEIN, SERUM 7.4 g/dL (6.4-8.3)
[2016-07-27] MEDS ORDERED: FUROSEMIDE 40 MG/4 ML VIAL IVP ONE (23:30)
--- NOTE | 2016-07-28 | NUR ---
Pt is resting comfortably in bed. Vitals WNL. Will continue to monitor via monitor worker. No distress noted.
--- NOTE | 2016-07-28 01:09 | NUR ---
ADMISSION NOTE Received patient from ER via gurney. Patient admitted with diagnosis of CHF/Cellulitis. Patient is awake, alert, oriented X 4. Patient oriented to hospital room, call light, toileting, pain management and safety-teach back done. Patient informed that Pratima will be her nurse and that their room number is 102. Personal belongings checked and Belongings List documented. Call light within reach.
--- NOTE | 2016-07-28 01:12 | NUR ---
CONSULTATION PAGED REASON FOR CONSULTATION:CHF/CELLULITIS WAS CONSULT CALLED?Y PERSON WHO WAS NOTIFIED:DEONNA CONSULTING PHYSICIAN:SHEN ROMAN HAND BINDER CUTTER SPECIALTY:CARDIO HAND BINDER CUTTER PHONE NUMBER:[phone]
--- NOTE | 2016-07-28 01:15 | NUR ---
Patient will be admitted to care of Dr. Echavarria. Admitted to Telemetry unit. Will go to room 102A. Summary report printed. Report given to Elizabeth WHITT.
[2016-07-28 01:24] VITALS: BP 134/85; PULSE 68; RESP 20; TEMP 97.6; O2SAT 100
--- NOTE | 2016-07-28 03:00 | NUR ---
RESTING PT MADE COMFORTABLE, NO C/O PAIN AT THIS TIME, NO SOB NOTED. FREQUENT MONITORING BEING DONE. BED IN LOW POSITION, CALL LIGHT WITHIN REACH.
[2016-07-28 04:16] VITALS: BP 120/63; PULSE 68; RESP 17; TEMP 97.4; O2SAT 97
--- NOTE | 2016-07-28 04:24 | NUR ---
SITTING ON CHAIR PT SITTING ON CHAIR WITH BILATERAL LOWER EXTREMITIES ELEVATED ON A CHAIR, STATED SHE CAN SLEEP BETTER THIS WAY. FREQUENT MONITORING BEING DONE, CALL LIGHT WITHIN REACH.
--- NOTE | 2016-07-28 04:52 | NUR ---
PAIN MEDICATION/NEW ORDER DR. YUNG AWARE PT IS IN PAIN 02/25, ORDERED MORPHINE 1MG IVP Q4H PRN FOR SEVERE PAIN.
[2016-07-28] MEDS: MORPHINE 2 MG/ML INJ. SYRINGE IVP PRN (05:10)
--- NOTE | 2016-07-28 05:53 | NUR ---
BEDSIDE COMMODE PT ON BEDSIDE COMMODE FOR BOWEL MOVEMENT, COLLECTED URINE SPECIMEN ALREADY. CALL LIGHT WITHIN REACH.
[2016-07-28] MEDS ORDERED: FUROSEMIDE 40 MG/4 ML VIAL IVP ONE (06:15)
--- NOTE | 2016-07-28 06:53 | NUR ---
CLOSING NOTES PT RESTING ON BEDSIDE CHAIR COVERED WITH BLANKETS. NO SOB NOTED AT THIS TIME. ALL NEEDS MET THROUGHOUT SHIFT. WILL ENDORSE CARE TO ONCOMING NURSE. CALL LIGHT WITHIN REACH.
[2016-07-28 07:47] LABS: BILIRUBIN,URINE NEGATIVE (NEGATIVE); BLOOD, URINE NEGATIVE (NEGATIVE); CLARITY/URINE CLEAR (CLEAR); COLOR,URINE YELLOW (YELLOW); GLUCOSE,URINE NEGATIVE (NEGATIVE); KETONES,URINE NEGATIVE (NEGATIVE); LEUKOCYTE ESTERASE ,URINE NEGATIVE (NEGATIVE); NITRITE, URINE NEGATIVE (NEGATIVE); PROTEIN URINE NEGATIVE (NEGATIVE); UROBILINOGEN,URINE 0.2 (0.2-1.0)
[2016-07-28 08:00] VITALS: BP 131/59; PULSE 60; RESP 24; TEMP 97.8; O2SAT 100
--- NOTE | 2016-07-28 08:00 | NUR ---
AM NOTES: PT RECEIVED ON THE CHAIR, SLEEPING, ON 2 LPM O2 BY NC, NO RESP DISTRESS NOTED, AROUSABLE, AWAKE, ALERT OTINRTE X3, FOLLOWS COMMANDS, PULSES ARE WEAK, BLE ARE EDEMATOUS, ON NSR, TO CONTINUE TO MONITOR CLOSELY.
--- NOTE | 2016-07-28 08:13 | NUR ---
Nutrition Update Stanislaw Scale 14 noted. Pt admitted for chronic heart failure, cellulitis. Diet: 2gm Na BMI: 49.8 kg/m2 RD to follow per nutrition care standards.
[2016-07-28] MEDS: METOLAZONE 2.5 MG TABLET PO SCH (08:31)
[2016-07-28] MEDS: CARVEDILOL 12.5 MG TABLET (COREG) PO SCH ×2 (08:32→21:25)
[2016-07-28] MEDS: ASPIRIN 81 MG TAB.CHEW PO SCH (08:32)
[2016-07-28] MEDS: LOSARTAN POTASSIUM 50 MG TABLET (COZAAR) PO SCH ×2 (08:32→21:25)
--- NOTE | 2016-07-28 10:00 | NUR ---
NURSE: STILL ON THE CHAIR, NO RESP DISTRESS NOTED.
[2016-07-28 11:07] VITALS: Ht 157.5 cm; Wt 127.7 kg
[2016-07-28] MEDS: FUROSEMIDE 100 MG in D5W 90 ML IV SCH (11:58)
--- NOTE | 2016-07-28 12:00 | NUR ---
NURSE: PT IS STARTED ON LASIX DRIP PER DR AMEZQUITA, PÉREZ CATH PLACEMENT DONE PER DR AMEZQUITA TO MONITOR I&O'S ACCURATELY, PLACED PT BACK TO BED.
[2016-07-28 12:28] VITALS: BP 137/94; PULSE 65; RESP 17; TEMP 97.8; O2SAT 98
--- NOTE | 2016-07-28 13:36 | NUR ---
NURSE: LASIX DRIP WAS STARTED AT 3 MG/HR.
--- NOTE | 2016-07-28 14:30 | NUR ---
Wound Evaluation: Late note for 1430 secondary to patient care. Wound Consult received from Dr. Echavarria. Thank you, Dr. Echavarria, for the consult. Patient received sitting up in a chair, and has a Juan José bed with an Atmos-Air 9000 Mattress, awake, alert, oriented. Skin is fair (-). Patient is able to turn in bed and transfer to chair or bedside commode. Stanislaw score is a 14. Past Medical History: CHF, and hypertension. Recent labs: WBC 4.4, RBC 3.75, Hgb 11.4, Hct 36.0, BUN 42, Creat 1.21, GFR 58, BNP 1200, Alb 3.2, Alk Phos 120, PT 15.6, INR 1.4. Intrinsic factors that delay wound healing: CHF, Hypoalbuminemia. Extrinsic factors that delay wound healing: Decreased mobility. Blood Culture x 2, and MRSA Screen results in progress. Wound Assessment: 1) Left Lateral-Posterior Lower Extremity: Appears to be Venous Insufficiency, present on admission. No odor, no drainage, no weeping. Extremity has 3+ non-pitting edema. Dry, flaky, dark colored skin present on extremity. One wound present, 100% pink tissue. No odor, no drainage. Measures 0.3 cm x 0.5 cm. Recommend: Cleanse extremity with normal Saline. Pat dry. Apply lotion to extremity. Cover involved area with oil emulsion dressing, then non-adherent pad. Wrap with trina wrap, secure with tape. Perform site care daily, and as needed for dressing soiling or dislodgement. 2) Right Lower Extremity: Appears to be Venous Insufficiency, present on admission. No odor, no drainage, no weeping. Extremity has 2+ non-pitting edema. Dry, flaky, dark colored skin present on extremity. Recommend: Cleanse extremity with normal Saline. Pat dry. Apply lotion to extremity. Perform site care daily, and as needed for soiling. 3) Abdominal Folds: Moisture present, mild odor. No signs of non-intact skin. Recommend: Cleanse site with normal Saline. Pat dry. Place Interdry AG in between abdominal folds. Perform site care q shift, and as needed. Replace Interdry AG q five days, and as needed for soiling. Also recommend: Encourage and assist patient as needed with repositioning every two hours with pillow support, and off-load pressure areas with pillows for pressure re-distribution. Offload, elevate and float bilateral lower extremities. Perform skin care and monitor skin integrity q shift. Use moisture barrier cream on buttocks, and other moisture susceptible areas qid and as needed for soiling.
--- NOTE | 2016-07-28 16:00 | NUR ---
NURSE SEEN BY DR YUNG, INFORMED HER THAT THE PT REFUSED THE BLOOD DRAW FOR BMP AND MAG, SHE SAID TO TRY AGAIN LATER TODAY.
[2016-07-28 16:55] VITALS: BP 140/90; PULSE 72; RESP 18; TEMP 98.1; O2SAT 98
--- NOTE | 2016-07-28 18:21 | NUR ---
NOTES: DR YUNG IS AWARE THAT THE LASIX DRIP IS AT 5 MG/HR.
--- NOTE | 2016-07-28 20:21 | NUR ---
Patient awake sitting up in chair EDEMA is noted to both lower extremities 3 + pitting , assist for comfort fall measures implemented call georges with patient on NC @ 2 LPM , 02 SAT 97 % .
[2016-07-28 20:26] VITALS: BP 136/89; PULSE 64; RESP 20; TEMP 98.2; O2SAT 96
[2016-07-28] MEDS: HEPARIN SODIUM,PORCINE 5000 UNITS/ML VIAL SUBCUT SCH (21:26)
--- NOTE | 2016-07-28 22:31 | NUR ---
patient LASIX drip @ 5 MG / HR put back to bed HOB elevated , assist for position change activity tolerated / .
[2016-07-28] MEDS: HYDROcodone/ACETAMIN 5-325 MG TAB (NORCO/ VICODIN) PO PRN (23:47)
--- NOTE | 2016-07-29 00:16 | NUR ---
NORCO TABLET PO administer for general pain /10 , assist for position change helpful / .
[2016-07-29 00:26] VITALS: BP 136/78; PULSE 70; RESP 16; TEMP 98.6; O2SAT 98
[2016-07-29] MEDS ORDERED: FUROSEMIDE 100 MG/10 ML VIAL ONE (02:48)
[2016-07-29] MEDS: FUROSEMIDE 100 MG in D5W 90 ML IV SCH (03:43)
[2016-07-29 05:30] VITALS: BP 118/79; PULSE 69; RESP 16; TEMP 98.1; O2SAT 94
--- NOTE | 2016-07-29 06:13 | NUR ---
Hourly Rounding patient awake put back to bed , HOB elevated assist for position change respirations regular also unlabored / .
--- NOTE | 2016-07-29 06:14 | NUR ---
FUROSEMIDE DRIP @ 5 ML HOUR new bag spike , & running infusing as ordered / .
[2016-07-29 07:02] LABS: BASOPHILS # (AUTO) 0.1 K/uL (0.0-0.2); BASOPHILS % (AUTO) 1.2 % (0.0-2.0); EOSINOPHILS # (AUTO) 0.1 K/uL (0.0-0.4); EOSINOPHILS % (AUTO) 2.8 % (0.0-4.0); HEMATOCRIT 36.1 % (36-48); HEMOGLOBIN 11.5 g/dL (12.0-16.0); LYMPHOCYTES # (AUTO) 0.5 K/uL (1.0-5.5); LYMPHOCYTES % (AUTO) 12.8 % (20.5-51.5); MEAN CORPUSCULAR HEMOGLOBIN 31 pg (27-31); MEAN CORPUSCULAR HGB CONC 32 % (32-36); MEAN CORPUSCULAR VOLUME 97 fL (79.0-98.0); MONOCYTES # (AUTO) 0.5 K/uL (0.0-1.0); MONOCYTES % (AUTO) 10.9 % (1.7-9.3); NEUTROPHILS # (AUTO) 3.1 K/uL (1.8-7.7); NEUTROPHILS % (AUTO) 72.3 % (40.0-70.0); PLATELET COUNT (AUTO) 210 K/uL (130-430); RED BLOOD CELL COUNT(AUTO) 3.73 MIL/uL (4.2-6.2); RED CELL DISTRIBUTION WIDTH 18.2 % (9.0-15.0); WHITE BLOOD COUNT (AUTO) 4.3 K/uL (4.8-10.8)
[2016-07-29 07:10] LABS: ALBUMIN 3.6 g/dL (3.4-4.8); CALCIUM 8.7 mg/dL (8.4-11.0); CREATININE 0.99 mg/dL (0.55-1.30)
[2016-07-29 07:18] LABS: POTASSIUM 2.9 mmol/L (3.5-5.1)
--- NOTE | 2016-07-29 07:20 | NUR ---
AM AROUNDS: PATIENT SLEEPING DURING ROUNDS. IV LASIX DRIP RUNNING AT 5CC/H AT RIGHT HAND . BILATERAL LOWER LEGS SWELLING NOTED. WITH LEFT LOWER LEG DRESSING DRY AND INTACT. NO DISTRESS.
--- NOTE | 2016-07-29 07:55 | NUR ---
paged: hall monitor logan called dr rodriguez and jackson an nurse spoke to her and relayed k=2.9 with orders give k-dur 30meq po x 1 dose.
[2016-07-29 08:19] VITALS: BP 113/58; PULSE 64; RESP 18; TEMP 97.2; O2SAT 100
[2016-07-29] MEDS: LOSARTAN POTASSIUM 50 MG TABLET (COZAAR) PO SCH ×2 (08:22→22:07)
[2016-07-29] MEDS: METOLAZONE 2.5 MG TABLET PO SCH (08:23)
[2016-07-29] MEDS: ASPIRIN 81 MG TAB.CHEW PO SCH (08:23)
[2016-07-29] MEDS: CARVEDILOL 12.5 MG TABLET (COREG) PO SCH ×2 (08:23→22:06)
[2016-07-29] MEDS: HEPARIN SODIUM,PORCINE 5000 UNITS/ML VIAL SUBCUT SCH ×2 (08:26→21:00)
[2016-07-29] MEDS ORDERED: POTASSIUM CHLORIDE 10 MEQ TAB.PRT.SR PO ONE (08:30)
[2016-07-29] MEDS: MORPHINE 2 MG/ML INJ. SYRINGE IVP PRN ×2 (08:36→16:36)
--- NOTE | 2016-07-29 08:50 | NUR ---
PAIN MEDS: C/O GENERALIZED PAIN AND DUE IV PAIN MEDS GIVEN PER REQUEST.
--- NOTE | 2016-07-29 10:00 | NUR ---
bsc: patient assisted to bsc. voided . assisted back by commissioner of conciliation to the bed.stable.
--- NOTE | 2016-07-29 10:15 | NUR ---
k-dur: k-dur 30meq po x 1 dose given as ordered.
[2016-07-29] MEDS: HYDROcodone/ACETAMIN 5-325 MG TAB (NORCO/ VICODIN) PO PRN ×2 (10:16→22:05)
[2016-07-29] MEDS ORDERED: POTASSIUM CHLORIDE 20 MEQ TAB.PRT.SR PO ONE (10:45)
[2016-07-29] MEDS ORDERED: SPIRONOLACTONE 25 MG TABLET (ALDACTONE) PO ONE (10:45)
--- NOTE | 2016-07-29 12:25 | NUR ---
rounds: lunch served by superintendent plant protection. sitting on the chair. call light with in reach.
[2016-07-29 12:51] VITALS: BP 128/64; PULSE 64; RESP 16; TEMP 97.9; O2SAT 97
--- NOTE | 2016-07-29 13:08 | NUR ---
Nutrition Consult Nutrition Consult (Wound) received. Pt was seen and assessed by RD on 07/28/16. Please refer to Nutrition Assessment. RD to continue to follow per nutrition care standards.
--- NOTE | 2016-07-29 14:00 | NUR ---
rounds: patient sitting on the chair. ate lunch already. needs attended to.
--- NOTE | 2016-07-29 16:36 | NUR ---
pain meds: c/o generalized pain and due iv pain meds given per request.
[2016-07-29 16:54] VITALS: BP 130/71; PULSE 74; RESP 18; TEMP 97.9; O2SAT 98
--- NOTE | 2016-07-29 17:42 | NUR ---
ROUNDS: PATIENT SITTING ON THE CHAIR,EATING DINNER.
--- NOTE | 2016-07-29 18:32 | NUR ---
CLOSING NOTES: PATIENT IN STABLE CONDITION. NEEDS ATTENDED TO. CALL LIGHT WITH IN REACH.
--- NOTE | 2016-07-29 18:32 | NUR ---
LASIX DRIP: LASIX DRIP STILL ON AT 5CC/H AT RIGHT HAND INTACT.
--- NOTE | 2016-07-29 18:55 | NUR ---
Nutrition Note Nutrition note signed by Dr. Echavarria on 07/28/16. RD to place oral supplement order per MD.
--- NOTE | 2016-07-29 19:21 | NUR ---
paged for Dr Echavarria, dialed: . s/w Baylee.
--- NOTE | 2016-07-29 19:22 | NUR ---
phoned paged DR AGA CALHOUN regarding MRSA nares isolation / .
--- NOTE | 2016-07-29 19:51 | NUR ---
New orders DR YUNG , start Bactroban ointment bid d/t nares MRSA / .
[2016-07-29 20:13] VITALS: BP 129/68; PULSE 78; RESP 20; TEMP 97.2; O2SAT 96
[2016-07-29] MEDS: MUPIROCIN 2% TOPICAL OINTMENT 22 GM TP SCH (22:05)
[2016-07-29] MEDS: SPIRONOLACTONE 25 MG TABLET (ALDACTONE) PO SCH (22:06)
[2016-07-30] MEDS: FUROSEMIDE 100 MG in D5W 90 ML IV SCH (01:00)
[2016-07-30] MEDS: MORPHINE 2 MG/ML INJ. SYRINGE IVP PRN ×3 (01:02→21:41)
--- NOTE | 2016-07-30 01:19 | NUR ---
Assist patient out of bed to chair edema is noted to both legs , patient on 02 NC @ 2 LPM aches & pains are noted / .
--- NOTE | 2016-07-30 01:20 | NUR ---
MORPHINE SULFATE 1 MG IVP given for pain 7/10 generalized position change helpful .
--- NOTE | 2016-07-30 04:02 | NUR ---
Lasix drip @ 5 ML hour continued , edema is noted to both lower legs & generalized / .
[2016-07-30 04:15] VITALS: BP 123/70; PULSE 81; RESP 18; TEMP 98.6; O2SAT 93
[2016-07-30 07:38] LABS: CALCIUM 8.3 mg/dL (8.4-11.0); CREATININE 1.01 mg/dL (0.55-1.30); POTASSIUM 3.3 mmol/L (3.5-5.1)
--- NOTE | 2016-07-30 08:00 | NUR ---
PATIENT AT REST IN A CHAIR, A/OX4. IV SITE ON RIGHT HAND, #22, INFUSED WITH 5ML/5MG/HR OF LASIX DRIP. NO SIGNS OF DISTRESS NOTED. INSTRUCTED PATIENT TO USE CALL LIGHT, WHICH IS IN PLACE, FOR NEEDS.
[2016-07-30] MEDS: HEPARIN SODIUM,PORCINE 5000 UNITS/ML VIAL SUBCUT SCH ×3 (09:00→21:44)
[2016-07-30] MEDS ORDERED: POTASSIUM CHLORIDE 10 MEQ TAB.PRT.SR PO ONE (10:00)
--- NOTE | 2016-07-30 10:25 | NUR ---
PATIENT HAD A BM. PATIENT IS ALSO CLEANED AND ASSISTED BACK TO BED WITH 2 PEOPLE'S ASSISTANCE.
[2016-07-30] MEDS: LOSARTAN POTASSIUM 50 MG TABLET (COZAAR) PO SCH ×2 (10:29→21:42)
[2016-07-30] MEDS: SPIRONOLACTONE 25 MG TABLET (ALDACTONE) PO SCH ×2 (10:30→21:42)
[2016-07-30] MEDS: CARVEDILOL 12.5 MG TABLET (COREG) PO SCH ×2 (10:31→21:43)
[2016-07-30] MEDS: METOLAZONE 2.5 MG TABLET PO SCH (10:31)
[2016-07-30] MEDS: ASPIRIN 81 MG TAB.CHEW PO SCH (10:31)
[2016-07-30] MEDS: MUPIROCIN 2% TOPICAL OINTMENT 22 GM TP SCH ×2 (10:38→21:44)
--- NOTE | 2016-07-30 12:19 | NUR ---
PATIENT IS EATING LUNCH, NO SIGNS OF DISTRESS NOTED.
[2016-07-30 12:22] VITALS: BP 153/81; PULSE 83; RESP 19; TEMP 96.8; O2SAT 97
[2016-07-30] MEDS ORDERED: POTASSIUM CHLORIDE 20 MEQ TAB.PRT.SR PO ONE (13:00)
--- NOTE | 2016-07-30 14:35 | NUR ---
PATIENT IS RESTING, NO SIGNS OF DISTRESS NOTED.
[2016-07-30 16:00] VITALS: BP 108/54; PULSE 62; RESP 21; TEMP 98; O2SAT 97
--- NOTE | 2016-07-30 17:00 | NUR ---
PATIENT IS ASSISTED INTO A CHAIR, AND RESTING COMFORTABLY THERE.
--- NOTE | 2016-07-30 19:00 | NUR ---
PATIENT IS STABLE. ALL NEEDS MET. WILL DELEGATE NEXT SHIFT.
[2016-07-30 20:00] VITALS: BP 119/71; PULSE 68; RESP 20; TEMP 97.8; O2SAT 96
--- NOTE | 2016-07-30 21:05 | NUR ---
PATIENT AWAKE assist out of bed to chair verbally indicative skin dry warm / monitor .
--- NOTE | 2016-07-31 | NUR ---
MORPHINE SULFATE 1 MG IVP given for general pain 12/25 & helpful assist as needed / .
--- NOTE | 2016-07-31 00:11 | NUR ---
Hourly Rounding patient resting this hour HOB elevated on 02 NC @ 2 LPM .
--- NOTE | 2016-07-31 00:12 | NUR ---
LASIX FUROSEMIDE DRIP GTT @ 5ML / HR , EDEMA is noted in general / .
[2016-07-31 00:25] VITALS: BP 125/74; PULSE 69; RESP 19; TEMP 97.2; O2SAT 95
[2016-07-31] MEDS: MORPHINE 2 MG/ML INJ. SYRINGE IVP PRN ×3 (01:24→14:41)
--- NOTE | 2016-07-31 02:49 | NUR ---
MORPHINE SULFATE 1 MG IVP administer for general pain 12/25 & helpful , patient resting bed to low position .
[2016-07-31 04:11] VITALS: BP 120/73; PULSE 63; RESP 20; TEMP 97.7; O2SAT 100
--- NOTE | 2016-07-31 05:33 | NUR ---
Patient assisted out of bed to chair edema noted to lower legs Lasix gtt continued / .
--- NOTE | 2016-07-31 07:30 | NUR ---
AM ROUNDS PATIENT SITTING IN CHAIR AT THE BEDSIDE, AWAKE, ALERT AND ORIENTED X4 DENIES PAIN, ASSESSMENT COMPLETE, EDUCATED THE PATIENT ANALYSIS OR RESEARCH SAFETY INSPECTOR LIGHT SYSTEM AND TO CALL FOR ANY ASSISTANCE, PATIENT VERBALIZED UNDERSTANDING AT THIS TIME, CALL LIGHT PLACED NEXT TO THE PATIENT'S HAND, PATIENT IS TOLERATING LASIX DRIP WELL AT THIS TIME, BLOOD PRESSURE AND HEART RATE STABLE, CONTINUING TO MONITOR URINE OUTPUT AT THIS TIME, NO OTHER NEEDS AT THIS TIME, BED IN LOWEST POSITION, BED CLOSE TO NURSE'S STATION, CALL LIGHT PLACED IN THE PATIENT'S HAND, FALL, ASPIRATION AND ISOLATION PRECAUTIONS IN PLACE, WILL CONTINUE TO MONITOR.
[2016-07-31 08:35] VITALS: BP 125/74; PULSE 69; RESP 16; TEMP 98.4; O2SAT 99
[2016-07-31] MEDS: METOLAZONE 5 MG TABLET PO SCH (09:00)
[2016-07-31] MEDS: HEPARIN SODIUM,PORCINE 5000 UNITS/ML VIAL SUBCUT SCH ×2 (09:00→21:00)
[2016-07-31] MEDS: SPIRONOLACTONE 25 MG TABLET (ALDACTONE) PO SCH ×2 (09:00→21:00)
[2016-07-31] MEDS: LOSARTAN POTASSIUM 50 MG TABLET (COZAAR) PO SCH ×2 (09:11→21:19)
[2016-07-31] MEDS: ASPIRIN 81 MG TAB.CHEW PO SCH (09:12)
[2016-07-31] MEDS: CARVEDILOL 12.5 MG TABLET (COREG) PO SCH ×2 (09:12→21:20)
[2016-07-31] MEDS: POTASSIUM CHLORIDE 20 MEQ TAB.PRT.SR PO SCH (09:12)
[2016-07-31] MEDS: MUPIROCIN 2% TOPICAL OINTMENT 22 GM TP SCH ×2 (09:13→21:16)
--- NOTE | 2016-07-31 09:30 | NUR ---
RN ROUNDS PATIENT SITTING IN RECLINER CHAIR AT THE BEDSIDE, WAS BEING ASSISTED BY PHYSICAL THERAPIST, PATIENT TOLERATED WELL, STATES SHE HAS 7/10 PAIN AT THIS TIME, EDUCATED THE PATIENT ON PAIN MEDICATION AND POTENTIAL SIDE EFFECTS, PATIENT VERBALIZED UNDERSTANDING AND TOLERATED WELL AT THIS TIME, EDUCATED THE PATIENT ON MORNING MEDICATIONS, BENEFITS AND POTENTIAL SIDE EFFECTS, PATIENT REFUSED ALDACTONE, ZAROXOLYN AND HEPARIN, EDUCATED THE PATIENT BUT PATIENT STILL REFUSED, PATIENT IS TOLERATING LASIX DRIP WELL AT THIS TIME, BLOOD PRESSURE AND HEART RATE STABLE, CONTINUING TO MONITOR URINE OUTPUT AT THIS TIME, NO OTHER NEEDS AT THIS TIME, BED IN LOWEST POSITION, CALL LIGHT PLACED IN THE PATIENT'S HAND, FALL, ASPIRATION AND ISOLATION PRECAUTIONS IN PLACE, WILL CONTINUE TO MONITOR.
--- NOTE | 2016-07-31 11:30 | NUR ---
RN ROUNDS PATIENT RESTING IN RECLINER CHAIR, DENIES PAIN, DENIES DIFFICULTY BREATHING AT THIS TIME, LASIX DRIP INFUSING WELL AT THIS TIME, PATIENT IS TOLERATING WELL WITH GOOD URINE OUTPUT, NO OTHER NEEDS AT THIS TIME, BED IN LOWEST POSITION, CALL LIGHT NEXT TO THE PATIENT'S HAND, FALL, ASPIRATION AND ISOLATION PRECAUTIONS IN PLACE.
[2016-07-31 12:05] VITALS: BP 127/82; PULSE 67; RESP 18; TEMP 97.8; O2SAT 95
--- NOTE | 2016-07-31 14:49 | NUR ---
RN ROUNDS PATIENT RESTING IN BED, AWAKE, BEING ASSISTED BY RUIEL OLGUIN TO GO BACK TO BED, PATIENT TOLERATED WELL, BED IN LOWEST POSITION, THREE SIDE RAILS UP, BED ALARM ON, FALL, ASPIRATION AND ISOLATION PRECAUTIONS IN PLACE, PATIENT COMPLAINING OF PAIN, EDUCATED THE PATIENT ON PAIN MEDICATION AND POTENTIAL SIDE EFFECTS, PATIENT VERBALIZED UNDERSTANDING AND TOLERATED WELL, NO OTHER NEEDS AT THIS TIME, CALL LIGHT PLACED NEXT TO THE PATIENT'S HAND.
[2016-07-31 15:27] VITALS: BP 146/94; PULSE 69; RESP 19; TEMP 97.4; O2SAT 100
--- NOTE | 2016-07-31 15:28 | NUR ---
PHYSICAL THERAPY CO-SIGN The Physical Therapy Progress Notes documented by Padded Box Sewer have been reviewed. I CONCUR W/BOBBIN CLEANING MACHINE OPERATOR NOTE; CONT PER TX PLAN Reviewed/Co-Signed by: Trixie Swartz PT Documentation Done by: WILBERT VERDE PTA Addendum: 07/31/16 at 1528 by Trixie Swartz PT Amended: Links added.
[2016-07-31] MEDS: FUROSEMIDE 100 MG in D5W 90 ML IV SCH (16:15)
--- NOTE | 2016-07-31 16:26 | NUR ---
RN ROUNDS PATIENT RESTING IN BED, EYES CLOSED, BREATHING IS EVEN AND UNLABORED, NO SIGNS OF DISTRESS, NEW LASIX BAG HUNG AT THIS TIME, PATIENT IS TOLERATING WELL, NO SIGNS OF DISTRESS AT THIS TIME, BED IN LOWEST POSITION, THREE SIDE RAILS UP, BED ALARM ON, BED CLOSE TO NURSE'S STATION, FALL, ASPIRATION AND ISOLATION PRECAUTIONS IN PLACE.
--- NOTE | 2016-07-31 16:53 | NUR ---
DR UYNG ROUNDS HERE AT THIS TIME, WILL FOLLOW UP WITH ANY NEW ORDERS.
--- NOTE | 2016-07-31 18:11 | NUR ---
WOUND CARE Wound Assessment: 1) Left Lateral-Posterior Lower Extremity: Appears to be Venous Insufficiency, present on admission. No odor, no drainage, no weeping. Extremity has 3+ non-pitting edema. Dry, flaky, dark colored skin present on extremity. One wound present, 100% pink tissue. No odor, no drainage. Measures 0.3 cm x 0.5 cm. Cleansed extremity with normal Saline. Patted dry. Applied lotion to extremity. Covered involved area with oil emulsion dressing, then non-adherent pad. Wrapped with trina wrap, secured with tape. Performing site care daily, and as needed for dressing soiling or dislodgement. 2) Right Lower Extremity: Appears to be Venous Insufficiency, present on admission. No odor, no drainage, no weeping. Extremity has 2+ non-pitting edema. Dry, flaky, dark colored skin present on extremity. Cleansed extremity with normal Saline. Patted dry. Applied lotion to extremity. Performing site care daily, and as needed for soiling. 3) Abdominal Folds: Moisture present, mild odor. No signs of non-intact skin. Cleansed site with normal Saline. Patted dry. Placed Interdry AG in between abdominal folds. Performing site care q shift, and as needed. Replace Interdry AG q five days, and as needed for soiling. Patient assisted with changing of Interdry. Encouraging and assisting patient as needed with repositioning every two hours with pillow support, and off-loading pressure areas with pillows for pressure re-distribution. Offloading, elevating and floating bilateral lower extremities. Performing skin care and monitoring skin integrity q shift. Using moisture barrier cream on buttocks, and other moisture susceptible areas qid and as needed for soiling.
[2016-07-31 20:00] VITALS: BP 149/82; PULSE 71; RESP 18; TEMP 98
--- NOTE | 2016-07-31 20:00 | NUR ---
INITIAL NOTES: PT A/O; PT REQUESTED TO SIT UP IN A CHAIR , WITH ASSIST HELPED PT ; PT IS COMFORTABLE ; DENIED ANY PAIN OR SOB AT THIS TIME ; VITALS ARE STABLE ; NOT IN ANY ACUTE DISTRESS;ON O2 2L NC ; ASSESSMENT DONE ; DRESSING NOTED TO THE LEFT CALF ; DRESSING CLEAN DRY AND INTACT , ALSO NOTED SCRATCHES/ DRY SCAB TO THE CHEST ; LASIX DRIP IS INFUSING AT THE RATE OF 5 CC/HR TO THE R HAND 22 G; IV CHECKED , NO S/S OF ANY INFILTRATION NOTED . PÉREZ IS DRAINING DEONDRE COLOR URINE TO GRAVITY ;CALL GIORDANO WITHIN REACH ; INSTRUCTED PT TO CALL FOR ASSIST ; WILL CONTINUE TO MONITOR
--- NOTE | 2016-07-31 21:30 | NUR ---
MEDICATION: PT REFUSED ALDACTONE AND HEPARIN ; PER REPORT MD IS AWARE ABOUT IT ; PT IS COMFORTABLE .
--- NOTE | 2016-07-31 23:00 | NUR ---
RN NOTES: ASSISTED PT TO BACK TO BED ; PT STATED SHE WANTS TO SIT UP IN BED ; WITH ASSIST HELPED PT ; PT MADE COMFORTABLE .
[2016-08-01] MEDS: MORPHINE 2 MG/ML INJ. SYRINGE IVP PRN ×2 (00:37→11:11)
--- NOTE | 2016-08-01 00:37 | NUR ---
MEDICATION: PT CALLED AND ASKED FOR PAIN MEDICATION ; MEDICATED WITH MORPHINE ASPER ORDER
[2016-08-01 00:38] VITALS: BP 122/76; PULSE 63; RESP 18; TEMP 98.2; O2SAT 100
--- NOTE | 2016-08-01 02:10 | NUR ---
RN ROUNDS: PT IS SLEEPING COMFORTABLY ; NOT IN ANY DISTRESS.LASIX DRIP IS INFUSING WELL.
--- NOTE | 2016-08-01 04:20 | NUR ---
RN NOTES: PT IS SLEEPING, ON O2 2L NC ; NOT IN ANY ACUTE DISTRESS; WILL CONTINUE TO MONITOR.
[2016-08-01 04:41] VITALS: BP 126/70; PULSE 68; RESP 18; TEMP 98.6; O2SAT 98
--- NOTE | 2016-08-01 06:20 | NUR ---
RN NOTES: PT IS SLEEPING, NOT IN ANY ACUTE DISTRESS;LASIX DRIP IS INFUSING WELL; WILL CONTINUE TO MONITOR.
--- NOTE | 2016-08-01 07:40 | NUR ---
CLOSING NOTES: PT IS COMFORTABLE ; EATING HER BREAKFAST , NOT IN ANY ACUTE DISTRESS; REPORT GIVEN TO RN AT BEDSIDE ; INFORMED RN THAT PT REFUSED ALDACTONE AND HEPARIN LAST NIGHT .
[2016-08-01 08:00] VITALS: BP 136/82; PULSE 67; RESP 18; TEMP 98.6; O2SAT 99
--- NOTE | 2016-08-01 08:00 | NUR ---
NOTE PT RESTING IN BED WITH IV LASIX DRIP INFUSING THROUGH RIGHT HAND IV SITE AT THIS TIME. PT HAS O2 AT 2L/NC FOR SATURATION AND FOR COMFORT IN BREATHING. DENIES ANY PAIN OR DISCOMFORT AT THIS TIME. CALL LIGHT WITHIN REACH. TELE UNIT INTACT AND TRANSMITTING WELL AT THIS TIME.
[2016-08-01] MEDS: SPIRONOLACTONE 25 MG TABLET (ALDACTONE) PO SCH ×2 (08:50→21:00)
[2016-08-01] MEDS: HEPARIN SODIUM,PORCINE 5000 UNITS/ML VIAL SUBCUT SCH ×2 (08:51→21:00)
[2016-08-01] MEDS: LOSARTAN POTASSIUM 50 MG TABLET (COZAAR) PO SCH ×2 (09:09→21:38)
[2016-08-01] MEDS: ASPIRIN 81 MG TAB.CHEW PO SCH (09:09)
[2016-08-01] MEDS: CARVEDILOL 12.5 MG TABLET (COREG) PO SCH ×2 (09:09→21:39)
[2016-08-01] MEDS: METOLAZONE 5 MG TABLET PO SCH (09:09)
[2016-08-01] MEDS: POTASSIUM CHLORIDE 20 MEQ TAB.PRT.SR PO SCH (09:10)
[2016-08-01 09:27] LABS: CALCIUM 9.1 mg/dL (8.4-11.0); CREATININE 0.96 mg/dL (0.55-1.30); POTASSIUM 3.6 mmol/L (3.5-5.1)
--- NOTE | 2016-08-01 10:30 | NUR ---
NOTE PT WORKING WITH PHYSICAL THERAPY AND NOW SITTING IN BS CHAIR AT THIS TIME WITH PÉREZ CATHETER. DR AMEZQUITA ASSESSED PT AT THIS TIME. ORDERS GIVEN AND CARRIED OUT. PT'S IV WAS NOT COMFORTABLE AT THIS TIME AND PT STATES THE IV IS LEAKING AND SHE DOES NOT WANT TO HAVE NEW IV INSERTED. REQUESTING LASIX AND PAIN MEDICATIONS TO BE GIVEN PO. DR AMEZQUITA WAS CALLED FOR THE PO LASIX AND DR YUNG WAS CALLED FOR PO PAIN MEDICATIONS AT THIS TIME. PT SITTING IN BS CHAIR AND IS COMFORTABLE AT THIS TIME SITTING UP. O2 ON AT 2L/NC. CALL LIGHT WITHIN REACH.
[2016-08-01] MEDS: MUPIROCIN 2% TOPICAL OINTMENT 22 GM TP SCH ×2 (11:12→21:53)
[2016-08-01] MEDS ORDERED: FUROSEMIDE 100 MG in D5W 90 ML IV SCH (11:30)
--- NOTE | 2016-08-01 12:00 | NUR ---
PHYSICAL THERAPY CO-SIGN The Physical Therapy Progress Notes documented by Tobacco Stripper Hand have been reviewed. Reviewed/Co-Signed by: Cherelle Miller.,PT Documentation Done by: Rajan Monroe, NEELAM I concur with the documentation of this ASH COLLECTOR. Plan: continue PT as per plan of care. Addendum: 08/01/16 at 1449 by Cherelle Miller PT Amended: Links added.
[2016-08-01 12:22] VITALS: BP 130/90; PULSE 72; RESP 18; TEMP 98.2; O2SAT 99
[2016-08-01] MEDS ORDERED: HYDROcodone/ACETAMIN 5-325 MG TAB (NORCO/ VICODIN) PO PRN (13:30)
[2016-08-01] MEDS: FUROSEMIDE 80 MG TABLET PO SCH ×2 (14:52→21:39)
--- NOTE | 2016-08-01 15:00 | NUR ---
NOTE DR CARVAJAL ON THE FLOOR. ASSESSMENT OF PT COMPLETED AT THIS TIME. PT STATING SHE IS IN A LOT OF PAIN AND STILL HAS DIFFICULTY BREATHING, THOUGH O2 SATS ARE ALL 99%-98% ON 2L/NC. PT'S QUESTIONS/CONCERNS WERE ANSWERED BY DR YUNG AT THIS TIME. CALL LIGHT WITHIN REACH.
[2016-08-01] MEDS: DULoxetine HCL 30 MG CAPSULE.DR (CYMBALTA) PO SCH (15:15)
--- NOTE | 2016-08-01 15:30 | NUR ---
Wound Re-Evaluation: Wound Consult received from Dr. Echavarria. Thank you, Dr. Echavarria, for the consult. Patient received lying in a Juan José bed with an Atmos-Air 9000 Mattress, asleep, easily aroused, drowsy, oriented. Skin is fair (-). Patient is able to turn in bed and transfer to chair or bedside commode. Stanislaw score is a 16. Intrinsic factors that delay wound healing: CHF, Hypoalbuminemia. Extrinsic factors that delay wound healing: Decreased mobility. Blood Culture x 2 in progress. MRSA Screen results positive. Wound Assessment: 1) Left Lateral-Posterior Lower Extremity: Appears to be Venous Insufficiency, present on admission. No odor, no drainage, no weeping. Extremity has 3+ non-pitting edema. Dry, flaky, dark colored skin present on extremity. One wound present, 100% light pink tissue. No odor, no drainage. Measures 1.0 cm x 0.3 cm. Decreased edema. Recommend: No dressing needed. Cleanse extremity with normal Saline. Pat dry. Apply lotion to extremity. Perform site care daily, and as needed for soiling. Continue to monitor site. Contact wound care if area weeps or drains. 2) Right Lower Extremity: Appears to be Venous Insufficiency, present on admission. No odor, no drainage, no weeping. Extremity has 2+ non-pitting edema. Dry, flaky, dark colored skin present on extremity. Recommend continue: Cleanse extremity with normal Saline. Pat dry. Apply lotion to extremity. Perform site care daily, and as needed for soiling. 3) Abdominal Folds: Moisture present, mild odor. No signs of non-intact skin. Recommend continue: Cleanse site with normal Saline. Pat dry. Place Interdry AG in between abdominal folds. Perform site care q shift, and as needed. Replace Interdry AG q five days, and as needed for soiling. Also recommend continue: Encourage and assist patient as needed with repositioning every two hours with pillow support, and off-load pressure areas with pillows for pressure re-distribution. Offload, elevate and float bilateral lower extremities. Perform skin care and monitor skin integrity q shift. Use moisture barrier cream on buttocks, and other moisture susceptible areas qid and as needed for soiling.
[2016-08-01 15:56] LABS: THYROID STIMULATING HORMONE 0.96 uIu/mL (0.34-4.82)
--- NOTE | 2016-08-01 16:10 | NUR ---
NOTE PT REQUESTED THAT PÉREZ CATHETER BE REMOVED IT WAS BURNING HER AND VERY UNCOMFORTABLE AT THIS TIME. CATHETER WAS DC'D AND DR YUNG WAS CALLED TO BE NOTIFIED. BSC AND TOILET ROLL WAS KEPT WITHIN REACH FOR PT'S USE AT THIS TIME WELL. CALL LIGHT WITHIN REACH.
--- NOTE | 2016-08-01 16:13 | NUR ---
Nutrition F/U and Consult Admitting Diagnosis Chronic heart failure, cellulitis, anasarca Past Medical History Asthma, COPD, cardiac disorders, cerebrovascular accident (R side hemiparesis), HTN, cellulitis Pertinent Medications zaroxolyn, cozaar, coreg, norco/vicodin, morphine, lasix, k-dur, aldactone Current Diet Order 2gm Na Height (Feet) 5 feet Height (Inches) 2.00 inches Weight (Pounds) 260 pounds (admission) New Wt: 285 lb (07/29/16) Weight (Calculated Kilograms) 117.097456 kilograms Patient Weight 117.934 kg Body Mass Index 47.55 kg/m2 (obesity class III) NEW BMI: 52.2 kg/m2 (obesity class III) *Calculations based on recent dry wt from 07/03/16 hospital visit: 260 lb, 118 kg* NEW [place]/Adjusted Body Weight IBW: 110 lb/50 kg; %IBW: 259%; Adj BW: 154 lb/70 kg Estimated Needs 8582-3335 kcal/day (BEE using recent dry wt x 1.2-1.5 for COPD) Grams of Protein per Day 65-100 gm/day (1.3-2 gm/kg IBW for COPD) Fluid Intake Goal Per MD (heart failure) Pertinent Labs BUN 27 H, eGFR 76 L, BG 157 H 07/29/16: ALB 3.6 L, WBC 4.3 L, Hgb 11.5 L, ALP 111 WNL (improved), BNP 1270 H, Tbili 2 H Other Subjective Data Nutrition Consult (Wound) 07/28/16 1834 Pt seen sitting up in chair at time of application internship visit. Visible signs of edema present in bilateral lower extremities. Pt was awake and alert, able to answer questions. Pt reports dislike of vanilla Boost Plus; prefers chocolate flavor -- FNS staff notified. Per EMR, I/O: 980/1700 (-720 ml) per 12 hours; abd is soft and firm w/ active bowel sounds; last BM x1 08/01/16; no N/V/C/D; PO Intakes: 96% average x8 records; Stanislaw scale: 16; L posterior calf wound; non-pitting edema to bilateral lower extremities. Per MD orders, pending HgA1c lab results. Current diet is appropriate and adequate to meet optimal nutritional needs. Pt not yet appropriate for nutrition education. Problem, Etiology, Signs/Symptoms Increased nutrient needs related to pulmonary disease as evidenced by estimated PO intake (prior to admission) meeting less than estimated nutritional requirements. *ongoing Expected Outcomes or Goals * Monitor tolerance of diet, appetite, and PO intakes with goal of pt meeting at least 50% of estimated nutritional needs, labs trending WNL, normal GI function, skin integrity/weight maintenance Dietitian Recommendations * Recommend continuing 2 gm Na, Boost Plus BID Follow Up Moderate Risk: F/U in 3-5 days
[2016-08-01 16:20] VITALS: BP 138/82; PULSE 77; RESP 19; TEMP 98.4; O2SAT 99
--- NOTE | 2016-08-01 17:00 | NUR ---
NOTE PT WOUND ON LEFT CALF, BACK OF CALF WAS DONE BY RN AND NICHOLE GROUND CREWMAN. WOUND IS 2 TINY PIN PO[place] WOUND THAT IS PINK AND NO DRAINAGE OR OOZING NOTED AT THIS TIME. NO DRESSING NEEDED AT THIS TIME ON LEFT CALF, KEPT OPEN TO AIR AT THIS TIME.
[2016-08-01] MEDS ORDERED: DULoxetine HCL 30 MG CAPSULE.DR (CYMBALTA) PO ONE (17:15)
--- NOTE | 2016-08-01 18:30 | NUR ---
NOTE PT SITTING UP IN BS CHAIR AND EATING HER DINNER. PT REFUSED HER CYMBALTA PO AT 1715. NO SOB/RESP DISTRESS OR PAIN/DISCOMFORT NOTED AT THIS TIME. PT HAS HER O2 ON AT 2L/NC. PT ABLE TO MOVE FORM THE BED TO THE BSC INDEPENDENTLY. SLOWLY AND WITH GREAT CARE. NO NEEDS NOTED AT THIS TIME. TELE UNIT INTACT AND ATTACHED. RIGHT HAND IV IS INTACT/ PATENT AND SALINE LOCKED AT THIS TIME. PT CHECKED ON Q1' AND PRN FOR NEEDS. PT WAS MAINTAINED WITH SAFETY PRECAUTIONS ALL SHIFT. NO NEEDS NOTED. CALL LIGHT WITHIN REACH.
[2016-08-01 19:20] VITALS: BP 152/99; PULSE 87; RESP 20; TEMP 96.6; O2SAT 97
--- NOTE | 2016-08-01 19:20 | NUR ---
INITIAL NOTES; Pt is a/ox4, sitting on a chair watching TV. Vital signs 96.6, 20, 152/99,87, v5dqh=88% 2 L n/c oxy. Pt denies any pain,sob,or any acute distress this time. Lung sounds joselito anterior joselito lobes clear, diminished joselito posterior lower lobes. Abdomen soft & distended, bs present. IV site of left hand is not patent, pt refused to start new IV site even after explaining risks and benefits of IV site access. Joselito lower pedis present upon palp, but weak. Fall precaution in place. BSC with assistance. All safety measures in place. Discussed poc, all safety measures, or if experiencing chest pain, pain,sob, or any acute distress to use call light for assistance, pt verbalized understanding. Call light w/in reach. Continue to monitor pt.
--- NOTE | 2016-08-01 21:38 | NUR ---
ROUNDS; Bowel movt -Pt had large soft dark green stool. Provided perineal care and assisted pt to chair. -Gave medications, pt refused Heparin subcut and Aldactone po even after explained risks/benefits of taking these medications. Pt is still sitting on the chair with continoulsy 2L n/c oxy. Pt denies any pain,sob,or any acute distress. All safety measures in place. Call light w/in reach. Continue to monitor pt.
--- NOTE | 2016-08-02 00:33 | NUR ---
ROUNDS; -Pt is still sitting on the chair with continoulsy 2L n/c oxy. Pt denies any pain,sob,or any acute distress. All safety measures in place. Call light w/in reach. Continue to monitor pt.
[2016-08-02 00:47] VITALS: BP 143/74; PULSE 78; RESP 18; TEMP 97.9; O2SAT 93
--- NOTE | 2016-08-02 01:36 | NUR ---
ROUNDS;ASSISTED PT TO RETURN TO BED SAFELY -Pt is continoulsy 2L n/c oxy. Pt denies any pain,sob,or any acute distress. All safety measures in place. Call light w/in reach. Continue to monitor pt.
[2016-08-02] MEDS: HYDROcodone/ACETAMIN 5-325 MG TAB (NORCO/ VICODIN) PO PRN ×2 (02:35→21:18)
--- NOTE | 2016-08-02 02:35 | NUR ---
ROUNDS; PAIN MEDICATION ADMINISTERED -Pt is continoulsy 2L n/c oxy. Pt is c/o leg pain, gave [place] 2 tablets. All safety measures in place. Call light w/in reach. Continue to monitor pt.
--- NOTE | 2016-08-02 03:35 | NUR ---
ROUNDS; -Changed new battery of a monitor box and electrodes. Pt is resting in bed. Pt has continoulsy 2L n/c oxy. Pt denies any pain,sob,or any acute distress. All safety measures in place. Call light w/in reach. Continue to monitor pt.
--- NOTE | 2016-08-02 04:41 | NUR ---
ROUNDS; - Pt is resting in bed. Pt has continoulsy 2L n/c oxy. Pt denies any pain,sob,or any acute distress. All safety measures in place. Call light w/in reach. Continue to monitor pt.
[2016-08-02 04:55] VITALS: BP 133/90; PULSE 66; RESP 18; TEMP 97.3; O2SAT 99
--- NOTE | 2016-08-02 07:00 | NUR ---
CLOSING NOTES; - Pt is resting in bed. Pt refused to start new IV site. Pt has continoulsy 2L n/c oxy. Pt denies any pain,sob,or any acute distress. All safety measures in place. Fall precaution in place. Call light w/in reach. Continue to monitor pt.
[2016-08-02 07:49] VITALS: BP 126/81; PULSE 65; RESP 20; TEMP 97.7; O2SAT 100
--- NOTE | 2016-08-02 08:00 | NUR ---
NOTE PT SITTING ON SIDE OF BED AND EATING HER BREAKFAST. PT HAS HER O2 ON AT 2L/NC. NO SOB/RESP DISTRESS OR PAIN/DISCOMFORT NOTED AT THIS TIME. IV IN RIGHT HAND THERE, BUT DRESSING LOOSE AND HANGING FROM HAND, PT WILL NOT LET US TOUCH HER HAND OR REDRESS THE IV AT THIS TIME. TELE UNIT INTACT AND ATTACHED AT THIS TIME. CALL LIGHT WITHIN REACH.
[2016-08-02] MEDS: SPIRONOLACTONE 25 MG TABLET (ALDACTONE) PO SCH ×2 (08:53→21:00)
[2016-08-02] MEDS: HEPARIN SODIUM,PORCINE 5000 UNITS/ML VIAL SUBCUT SCH ×2 (08:53→21:00)
[2016-08-02] MEDS: DULoxetine HCL 30 MG CAPSULE.DR (CYMBALTA) PO SCH (08:54)
[2016-08-02] MEDS: POTASSIUM CHLORIDE 20 MEQ TAB.PRT.SR PO SCH (09:00)
[2016-08-02] MEDS: CARVEDILOL 12.5 MG TABLET (COREG) PO SCH ×2 (09:00→21:11)
[2016-08-02] MEDS: FUROSEMIDE 80 MG TABLET PO SCH ×3 (09:00→21:12)
[2016-08-02] MEDS: ASPIRIN 81 MG TAB.CHEW PO SCH (09:00)
--- NOTE | 2016-08-02 09:00 | NUR ---
NOTE PT WAS GIVEN 2 TABS OF NORCO FOR PAIN. ONLY 1 TAB WAS SCANNED IN ERROR.
[2016-08-02] MEDS: METOLAZONE 5 MG TABLET PO SCH (09:01)
[2016-08-02] MEDS: LOSARTAN POTASSIUM 50 MG TABLET (COZAAR) PO SCH ×2 (09:01→21:11)
[2016-08-02] MEDS: MUPIROCIN 2% TOPICAL OINTMENT 22 GM TP SCH ×2 (09:20→21:12)
--- NOTE | 2016-08-02 09:55 | NUR ---
NOTE LAB CALLED. THEY HAVE TRIED TO DRAW BLOOD FOR LABS X2. PT HAS REFUSED 2X THIS MORNING.
--- NOTE | 2016-08-02 10:00 | NUR ---
NOTE DR YUNG WAS CALLED TO BE NOTIFIED THAT PT WAS REFUSING LABS.
--- NOTE | 2016-08-02 10:20 | NUR ---
NOTE DR YUNG CALLED BACK AND NOTIFIED THAT PT REFUSED LABS X2, ALSO PT REFUSED TO TAKE HER CYMBALTA PO, ALDACTONE PO AND HEPARIN SQ. PT STATED STAFF SHOULD HAVE PUT A PICC LINE IN HER AT ADMISSION, SO LABS COULD HAVE BEEN DRAWN AND LASIX DRIP COULD HAVE INFUSED. SHE THEN GOT EMOTIONAL.
--- NOTE | 2016-08-02 11:05 | NUR ---
NOTE PT OOB WITH PHYSICAL THERAPY - AFTER AMBULATION PT NOW SITTING UP IN BS CHAIR. CALL LIGHT WITHIN REACH.
[2016-08-02 11:27] VITALS: BP 147/66; PULSE 78; RESP 16; TEMP 97.8; O2SAT 99
[2016-08-02] MEDS ORDERED: METO2.5T6 PO (11:58)
--- NOTE | 2016-08-02 12:00 | NUR ---
note DR YUGN ON THE FLOOR AND ASSESSMENT COMPLETED. ORDER FOR DISCHARGE BACK TO SNF REC'D. DR AMEZQUITA WAS CALLED, OKAYED PT TO GO BACK TO SNF. ADDITIONAL MEDICATION OF LASIX 80MG PO. DR YUNG WRITING OUT THE DISCHARGE MEDICATION AT THIS TIME. PT RESTING IN BEDSIDE CHAIR AT THIS TIME.
--- NOTE | 2016-08-02 12:18 | NUR ---
DISCHARGE PLANNING DC order back to [facility]. Faxed SNF referral to [phone] [phone]. Will follow up. Addendum: 08/02/16 at 1354 by Pastora Todd DP Spoke with Manju in admitting, still under review. Manju will call DCP with status update and bed assignment. Called and spoke with patient person to notify [facility] mailbox is full and unable to leave voice message at this time, call disconnects. Placed transportation packet in nurses station. Pending bed assignment. Addendum: 08/02/16 at 1423 by Pastora Todd DP Spoke with Julieth in admitting at [facility] facility currently has no ISO bed availability. Julieth advised DCP to follow up in AM.
--- NOTE | 2016-08-02 12:45 | NUR ---
PHYSICAL THERAPY CO-SIGN The Physical Therapy Progress Notes documented by Residential Building Inspector have been reviewed. Reviewed/Co-Signed by: Cherelle Miller, PT Documentation Done by: Rajan Dent PTA I concur with the documentation of this PHOTOVOLTAIC SUBCONTRACTOR. Patient did well with PT today. Plan: continue PT as per plan of care. Addendum: 08/02/16 at 1247 by Cherelle Miller PT Amended: Links added.
--- NOTE | 2016-08-02 15:00 | NUR ---
NOTE PT ASSISTED BACK TO BED FROM BS CHAIR. PT MADE COMFORTABLE IN BED. PT HAS HER O2 AT 2L/NC ON AT THIS TIME. NO NEEDS NOTED. PT DENIES ANY SOB/RESP DISTRESS OR PAIN/DISCOMFORT AT THIS TIME. CALL LIGHT WITHIN REACH.
[2016-08-02 15:39] VITALS: BP 133/78; PULSE 63; RESP 19; TEMP 97; O2SAT 96
--- NOTE | 2016-08-02 17:00 | NUR ---
NOTE PT ASLEEP IN BED. O2 ON AT 2L/NC. CALL LIGHT WITHIN REACH AT THIS TIME.
--- NOTE | 2016-08-02 17:40 | NUR ---
ROUNDS PATIENT IN BED, AWAKE, ALERT, ORIENTED, WATCHING TV, NOT IN DISTRESS, VITALS STABLE. DENIES ANY PAIN AND DISCOMFORT AT THIS TIME. ASSESSMENT DONE AND DOCUMENTED. SEE FLOWSHEET. NEEDS ATTENDED TO. SAFETY AND FALL PRECAUTION MEASURES IN PLACED. CALL LIGHT PLACED WITHIN REACH. Addendum: 08/03/16 at 0446 by Karol Pike RN WRONG ENTRY
--- NOTE | 2016-08-02 18:10 | NUR ---
NOTE PT SITTING UP IN BED EATING HER DINNER. PT HAS HER O2 ON AT 2L/NC. PT'S RIGHT HAND IV INTACT AT THIS TIME. NO SOB/RESP DISTRESS OR PAIN/DISCOMFORT NOTED AT THIS TIME. PT WAS CHECKED ON Q1' AND PRN FOR NEEDS AND CARE. PT ALSO ENCOURAGED TO TURN AND MOVE HER SELF IN BED Q2' AND PRN. NO NEEDS NOTED AT THIS TIME.
--- NOTE | 2016-08-02 18:35 | NUR ---
NOTE PT SITTING UP IN BED EATING HER DINNER. PT HAS HER O2 ON AT 2L/NC. PT'S RIGHT HAND IV IS INTACT AT THIS TIME. WOULD NOT LET ANY STAFF START A NEW IV ON HER. PT WAS CHECKED ON Q1' AND PRN FOR NEEDS AND CARE. PT MAINTAINED WITH SAFETY PRECAUTIONS ALL SHIFT. NO SOB/RESP DISTRESS OR PAIN/DISCOMFORT NOTED ALL SHIFT. PT STABLE AT THIS TIME. CALL LIGHT WITHIN REACH. DR POOLE WAS CALLED AT 1731 TO NOTIFY MD THAT PT HAS NO ISOLATION BED IN [facility] AT THIS TIME. WILL TRY AGAIN TOMORROW. NO CALL BACK REC'D.
--- NOTE | 2016-08-02 19:00 | NUR ---
note Dr Echavarria called back and informed MD that pt has no isolation bed today, will try again tomorrow for an isolation bed. update on pt's status given.
--- NOTE | 2016-08-02 20:00 | NUR ---
ROUNDS PATIENT IN BED, WATCHING TV, VITALS STABLE, DENIES ANY PAIN AND DISCOMFORT AT THIS TIME. ASSESSMENT DONE AND DOCUMENTED, SEE FLOWSHEET. ASSISTED PATIENT TO THE BEDSIDE COMMODE. ALL NEEDS ATTENDED TO. SAFETY AND FALL PRECAUTION BUNDLE IN PLACED. BED IN LOW AND LOCKED POSITION. CALL LIGHT PLACED WITH PATIENT.
--- NOTE | 2016-08-02 21:15 | NUR ---
MEDICATION DUE MEDICATIONS GIVEN SCHEDULED, TOLERATED WELL. WILL CONTINUE TO MONITOR.
--- NOTE | 2016-08-03 00:10 | NUR ---
PATIENT RESTING: Patient resting quietly. No acute distress noted. Vital signs within normal range.
[2016-08-03 00:11] VITALS: BP 125/72; PULSE 72; RESP 18; TEMP 97.4; O2SAT 100
[2016-08-03] MEDS: HYDROcodone/ACETAMIN 5-325 MG TAB (NORCO/ VICODIN) PO PRN ×4 (01:44→18:51)
--- NOTE | 2016-08-03 02:15 | NUR ---
ROUNDS PATIENT ASLEEP, NOT IN DISTRESS, VITALS STABLE. WILL CONTINUE TO MONITOR.
--- NOTE | 2016-08-03 04:00 | NUR ---
PATIENT RESTING: Patient resting quietly. No acute distress noted. Vital signs within normal range.
[2016-08-03 04:19] VITALS: BP 121/66; PULSE 64; RESP 18; TEMP 98.6; O2SAT 98
--- NOTE | 2016-08-03 06:48 | NUR ---
CLOSING NOTES PATIENT AWAKE, VITALS STABLE, NO PAIN AND DISCOMFORT AT THIS TIME. ALL NEEDS ATTENDED TO. SAFETY AND FALL PRECAUTION MEASURES MAINTAINED. CALL LIGHT PLACED WITH PATIENT.
--- NOTE | 2016-08-03 07:32 | NUR ---
INITIAL NOTE PT LYING IN BED, RESTING, EASY TO AROUSE, ALERT AND ORIENTED X4, NO S/S OF DISTRESS OR COMPLAINT OF PAIN AT THIS TIME, NASAL CANULA IN PLACE, PT REORIENTED TO USE OF CALL LIGHT AND IT IS PLACED WITHIN REACH, BED IN LOW POSITION AND LOCKED, SAFETY MEASURES IN PLACE, WILL FOLLOW UP.
[2016-08-03 08:03] VITALS: BP 131/76; PULSE 67; RESP 18; TEMP 98.1; O2SAT 100
[2016-08-03] MEDS: SPIRONOLACTONE 25 MG TABLET (ALDACTONE) PO SCH ×2 (09:00→21:00)
[2016-08-03] MEDS: DULoxetine HCL 30 MG CAPSULE.DR (CYMBALTA) PO SCH (09:00)
[2016-08-03] MEDS: HEPARIN SODIUM,PORCINE 5000 UNITS/ML VIAL SUBCUT SCH ×2 (09:00→21:00)
--- NOTE | 2016-08-03 09:00 | NUR ---
PATIENT REFUSED HEPARIN, CYMBALTA, AND SPIRINOLACTONE. PT EDUCATED REGARDING NEED FOR DVT PROPYLAXIS, DIURETIC, AND CONTINUITY OR CARE, PATIENT STILL REFUSED MEDICATION. WILL INFORM .
[2016-08-03] MEDS: MUPIROCIN 2% TOPICAL OINTMENT 22 GM TP SCH (09:12)
[2016-08-03] MEDS: METOLAZONE 5 MG TABLET PO SCH ×2 (09:12→20:40)
[2016-08-03] MEDS: ASPIRIN 81 MG TAB.CHEW PO SCH (09:13)
[2016-08-03] MEDS: FUROSEMIDE 80 MG TABLET PO SCH ×3 (09:13→20:38)
[2016-08-03] MEDS: POTASSIUM CHLORIDE 20 MEQ TAB.PRT.SR PO SCH (09:14)
[2016-08-03] MEDS: LOSARTAN POTASSIUM 50 MG TABLET (COZAAR) PO SCH ×2 (09:15→20:38)
[2016-08-03] MEDS: CARVEDILOL 12.5 MG TABLET (COREG) PO SCH ×2 (09:16→20:39)
[2016-08-03 09:20] LABS: CREATININE 1.06 mg/dL (0.55-1.30); POTASSIUM 3.9 mmol/L (3.5-5.1)
--- NOTE | 2016-08-03 09:27 | NUR ---
DISCHARGE PLANNING Called [phone] spoke with Julieth in admitting, still pending ISO bed availability. Will continue to follow up.
--- NOTE | 2016-08-03 11:13 | NUR ---
DR AGA GALLOWAY, AWARE OF PATIENT REFUSING SEVERAL MEDICATIONS, INCLUDING HEPARIN
--- NOTE | 2016-08-03 11:40 | NUR ---
PHYSICAL THERAPY AT BEDSIDE
[2016-08-03 12:00] VITALS: BP 131/77; PULSE 64; RESP 20; TEMP 96.7; O2SAT 100
--- NOTE | 2016-08-03 15:11 | NUR ---
Wound Re-Evaluation: Late note for 1510 secondary to patient care. Patient received lying in a [place]mont bed with an Atmos-Air 9000 Mattress, asleep, easily aroused, drowsy, oriented. Skin is fair (-). Patient is able to turn in bed and transfer to chair or bedside commode. Stanislaw score is a 17. Intrinsic factors that delay wound healing: CHF, Hypoalbuminemia. Extrinsic factors that delay wound healing: Decreased mobility. Blood Culture x 2 negative. Assisted patient to sitting at edge of bed. Wound Assessment: 1) Left Lateral-Posterior Lower Extremity: Appears to be Venous Insufficiency, present on admission. No odor, no drainage, no weeping. Extremity has 3+ non-pitting edema. Dry, flaky, dark colored skin present on extremity. One wound present, 100% light pink tissue. No odor, no drainage. Decreased edema. Recommend continue: No dressing needed. Cleanse extremity with normal Saline. Pat dry. Apply lotion to extremity. Perform site care daily, and as needed for soiling. Continue to monitor site. Contact wound care if area weeps or drains. 2) Right Lower Extremity: Appears to be Venous Insufficiency, present on admission. No odor, no drainage, no weeping. Extremity has 2+ non-pitting edema. Dry, flaky, dark colored skin present on extremity. Recommend continue: No dressing needed. Cleanse extremity with normal Saline. Pat dry. Apply lotion to extremity. Perform site care daily, and as needed for soiling. 3) Abdominal Folds: Moisture present, mild odor. No signs of non-intact skin. Recommend continue: Cleanse site with normal Saline. Pat dry. Place Interdry AG in between abdominal folds. Perform site care q shift, and as needed. Replace Interdry AG q five days, and as needed for soiling. Also recommend continue: Encourage and assist patient as needed with repositioning every two hours with pillow support, and off-load pressure areas with pillows for pressure re-distribution. Offload, elevate and float bilateral lower extremities. Perform skin care and monitor skin integrity q shift. Use moisture barrier cream on buttocks, and other moisture susceptible areas qid and as needed for soiling.
--- NOTE | 2016-08-03 15:11 | NUR ---
ROUNDS WOUND CARE NURSE AT BEDSIDE PT REPOSITIONED, CLEANED, AND LOTION APPLIED TO ARMS, BACK AND BILATERAL LOWER EXTREMITIES. PT IN GOOD SPIRITS AT THIS TIME. PER PATIENTS REQUEST, SHE IS SITTING ON THE SIDE OF BED WITH LEGS HANGING OFF SIDE, NO S/S OF DISTRES, CALL LIGHT WITHIN REACH, BED IN LOW POSITION AND LOCKED, WILL FOLLOW UP.
--- NOTE | 2016-08-03 15:24 | NUR ---
PHYSICAL THERAPY CO-SIGN The Physical Therapy Progress Notes documented by Gas Substation Operator have been reviewed. I CONCUR W/LAWNMOWER REPAIR MECHANIC NOTE; CONT PER TX PLAN Reviewed/Co-Signed by: Trixie Swartz PT Documentation Done by: WILBERT VERDE LAWNMOWER REPAIR MECHANIC Addendum: 08/03/16 at 1525 by Trixie Swartz PT Amended: Links added.
--- NOTE | 2016-08-03 17:02 | NUR ---
DC PLANNING: Re MRSA NARES. Confirmed with Candida, the pt. was on bactoban since 07/29/16 . The pt. may be decolonization. -- PERI Voss made aware >> Called Don at [facility], he will call nursing station to give bed assignment. -- Shanika to f/u.
--- NOTE | 2016-08-03 17:27 | NUR ---
SPOKE WITH CISCO CERTIFIED INTERNETWORK EXPERT FROM [facility], STATED THEY ARE WAITING FOR PENDING APPROVAL FROM [facility] AND DISCHARGE WILL MOST LIKELY BE THE FOLLOWING DAY. UPDATED TASSENE FROM CASE MANAGEMENT IN PERSON, THEY WILL FOLLOW UP TOMORROW.
[2016-08-03 17:43] VITALS: BP 144/77; PULSE 65; RESP 20; TEMP 98.1; O2SAT 99
--- NOTE | 2016-08-03 18:10 | NUR ---
DR BIA SALAS
--- NOTE | 2016-08-03 19:30 | NUR ---
CLOSING NOTE FAMILY AT BEDSIDE, PT AWAKE, SITTING UP IN BED, NO S/S OF DISTRESS OR COMPLAINT OF PAIN AT THIS TIME, NASAL CANULA IN PLACE, NEEDS ATTENDED TO THROUGH SHIFT, SAFETY AND ISOLATION PRECAUTIONS IN PLACE, BED IN LOW POSITION AND LOCKED, CALL LIGHT WITHIN REACH, WILL GIVE REPORT TO ONCOMING NURSE.
--- NOTE | 2016-08-03 19:50 | NUR ---
ROUNDS PATIENT IN BED, NOT IN DISTRESS, VITALS STABLE, DENIES ANY PAIN AND DISCOMFORT AT THIS TIME. ASSESSMENT DONE AND DOCUMENTED. SEE FLOWSHEET. FAMILY MEMBERS AT THE BEDSIDE. NEEDS ATTENDED TO. SAFETY AND FALL PRECAUTION MEASURES IN PLACED. CALL LIGHT PLACED WITH PATIENT.
--- NOTE | 2016-08-03 21:00 | NUR ---
NOTES PATIENT REFUSED HER ALDACTONE PO AND HEPARIN 5000 UNITS SQ MEDICATIONS SCHEDULED AT THIS TIME. RISKS AND BENEFITS EXPLAINED TO PATIENT. WILL CONTINUE TO MONITOR.
[2016-08-03 22:38] LABS: BASOPHILS % (AUTO) 0.9 % (0.0-2.0); EOSINOPHILS # (AUTO) 0.2 K/uL (0.0-0.4); EOSINOPHILS % (AUTO) 3.8 % (0.0-4.0); HEMATOCRIT 35.4 % (36-48); HEMOGLOBIN 11.2 g/dL (12.0-16.0); LYMPHOCYTES # (AUTO) 0.7 K/uL (1.0-5.5); MEAN CORPUSCULAR HEMOGLOBIN 31 pg (27-31); MEAN CORPUSCULAR HGB CONC 32 % (32-36); MEAN CORPUSCULAR VOLUME 97 fL (79.0-98.0); MONOCYTES # (AUTO) 0.8 K/uL (0.0-1.0); MONOCYTES % (AUTO) 17.3 % (1.7-9.3); NEUTROPHILS # (AUTO) 3.1 K/uL (1.8-7.7); PLATELET COUNT (AUTO) 158 K/uL (130-430); RED BLOOD CELL COUNT(AUTO) 3.65 MIL/uL (4.2-6.2); WHITE BLOOD COUNT (AUTO) 4.9 K/uL (4.8-10.8)
[2016-08-04] VITALS: BP 138/82; PULSE 66; RESP 20; TEMP 98.2; O2SAT 97
--- NOTE | 2016-08-04 | NUR ---
PATIENT RESTING: Patient resting quietly. No acute distress noted. Vital signs within normal range.
--- NOTE | 2016-08-04 02:15 | NUR ---
ROUNDS PATIENT ASLEEP, NOT IN DISTRESS, NO SIGNS OF ANY PAIN AND DISCOMFORT NOTED. WILL CONTINUE TO MONITOR.
--- NOTE | 2016-08-04 04:10 | NUR ---
PATIENT RESTING: Patient resting quietly. No acute distress noted. Vital signs within normal range.
[2016-08-04 04:54] VITALS: BP 132/82; PULSE 59; RESP 21; TEMP 97.8; O2SAT 98
--- NOTE | 2016-08-04 06:30 | NUR ---
CLOSING NOTES PATIENT AWAKE, NOT IN DISTRESS, VITALS STABLE, NO PAIN AND DISCOMFORT NOTED. ALL NEEDS ATTENDED TO. SAFETY AND FALL PRECAUTION MEASURES MAINTAINED. CALL LIGHT PLACED WITHIN REACH.
[2016-08-04 08:00] VITALS: BP 122/62; PULSE 66; RESP 18; TEMP 98.9
--- NOTE | 2016-08-04 08:00 | NUR ---
initial notes rec pt awake alert eating breakfast with hob elevated. ivl on the r hand intact. no infiltration noted. resp easy and unlabored. with o2 at 2 liters via nasal canula. bed in low position and side rails up and locked. call light within reached. fall/safety measures reinforced.
[2016-08-04] MEDS: ASPIRIN 81 MG TAB.CHEW PO SCH (08:53)
[2016-08-04] MEDS: METOLAZONE 5 MG TABLET PO SCH (08:53)
[2016-08-04] MEDS: POTASSIUM CHLORIDE 20 MEQ TAB.PRT.SR PO SCH (08:54)
[2016-08-04] MEDS: LOSARTAN POTASSIUM 50 MG TABLET (COZAAR) PO SCH (08:54)
[2016-08-04] MEDS: CARVEDILOL 12.5 MG TABLET (COREG) PO SCH (08:54)
[2016-08-04] MEDS: HEPARIN SODIUM,PORCINE 5000 UNITS/ML VIAL SUBCUT SCH (09:00)
[2016-08-04] MEDS: SPIRONOLACTONE 25 MG TABLET (ALDACTONE) PO SCH (09:00)
[2016-08-04] MEDS: DULoxetine HCL 30 MG CAPSULE.DR (CYMBALTA) PO SCH (09:00)
[2016-08-04] MEDS: HYDROcodone/ACETAMIN 5-325 MG TAB (NORCO/ VICODIN) PO PRN ×2 (09:16→18:11)
[2016-08-04] MEDS: FUROSEMIDE 80 MG TABLET PO SCH ×2 (09:17→15:00)
--- NOTE | 2016-08-04 10:30 | NUR ---
rounds up and sitting in a chair and maria elena well. seen by dr mcmillan.
--- NOTE | 2016-08-04 12:00 | NUR ---
rounds eating lunch. no sob noted.assisted on the commode at intervals.
[2016-08-04 12:27] VITALS: BP 134/81; PULSE 76; RESP 21; TEMP 98.4; O2SAT 98
--- NOTE | 2016-08-04 13:25 | NUR ---
DC PLANING: S/W debby Cliftonison at [facility] : requesting bed assignment today. The pt is to ressume the same CPAP setting at [facility]. There no need to isolate the pt. 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 The pt. was treated with bactoban x 7days. Per Etienne, " [facility] has bed available for the pt." He will inform his admitting dept and will review the referral documents for admission. MRSA report and dc order , CPAP setting order and other update info sent to [facility] by YAS Taylor.-- Cm to f/u for bed assignment. -- Leticia made aware. Addendum: 08/04/16 at 1402 by Herminio Crowley RN >> Informed the pt. at bedside re transferring her back to [facility] today. The pt. is agreeable with the POC. >> Jonathan/bakari Baer CM at [facility] stated " to use [facility] for the transfer" . Marianela will arrange her cm to contact [facility] to give auth for snf and cont. CPAP. Addendum: 08/04/16 at 1613 by Herminio Crowley RN >> s/w Shahla at [facility] #[phone] made her aware that Keyla at [facility] will be giving auth to transfer the pt. back to [facility] and blaire for Bipap. [facility] will be delivering the bipap and mask jean. The pt. needs bipap at night only. Keyla contact# [phone], . The pt. is scheduled for ambulance cotton picker at 1630. Shahla stated " accepting the pt. as planned'.
--- NOTE | 2016-08-04 13:33 | NUR ---
Discharge Planning [facility] received discharge order to SNF and continue CPAP. Patient is from [facility]. [facility] faxed information to Julieth at [facility] p [phone] f [phone]. Patient is accepted back to bed 208A. Patient is no longer in need of an isolation bed. They will order the CPAP. Phoned [facility] [phone]; they will transport patient at 4pm. Addendum: 08/04/16 at 1412 by Claudia English LCSW Spoke with Julieth at [facility]. They cannot accept patient until after 6pm as they require the CPAP to be there before the patient arrives. [facility] phoned [facility] [phone]; they will set up ambulance for 6:30 pm, reservation number [id number]. ORDER BOOKER informed Vernon Tammy. Addendum: 08/04/16 at 1412 by Claudia English LCSW Packet placed in nurses's station.
--- NOTE | 2016-08-04 14:00 | NUR ---
rounds sleeping at intervals in a sitting position at the edge of the bed. fall /safety precaution reinforced.
--- NOTE | 2016-08-04 14:15 | NUR ---
PHYSICAL THERAPY CO-SIGN The Physical Therapy Progress Notes documented by Drophammer Operator have been reviewed. I CONCUR W/SPORTS PSYCHOLOGIST NOTE Reviewed/Co-Signed by: Trixie Swartz PT Documentation Done by: WILBERT VERDE SPORTS PSYCHOLOGIST Addendum: 08/04/16 at 1416 by Trixie Swartz PT Amended: Links added.
[2016-08-04 17:07] VITALS: BP 122/69; PULSE 65; RESP 18; TEMP 97.1; O2SAT 100
--- NOTE | 2016-08-04 18:00 | NUR ---
rounds requested for pain med and was given. no sob noted.sitting at the edge of the bed.
[2016-08-04 18:46] VITALS: BP 122/69; PULSE 65; RESP 18; TEMP 97.1; O2SAT 100
--- NOTE | 2016-08-04 19:00 | NUR ---
closing notes report given to mckay production supervisor trainee at [facility] re patient. patient will not be transferred though till bipap is not delivered at the facility. will endorsed to hubert cedeno the bipap. no sob noted. stable.
--- NOTE | 2016-08-04 19:27 | NUR ---
called [facility] ambulance, dialed . s/w Nicole, asked to place the transport on a will-call status instead. notified her that we are waiting for the availability of the bipap/cpap machine in [facility] so we can transfer the Pt.
--- NOTE | 2016-08-04 20:16 | NUR ---
notes received the pt from the day nurse,shilpa allen called and stated that we can send the pt ,the bipap has been delivered.[facility] ambulance called ,eta 25 min.
--- NOTE | 2016-08-04 20:19 | NUR ---
called [facility] ambulance, dialed . s/w Brown, stated that ETA will be in the next 25 minutes.
--- NOTE | 2016-08-04 21:28 | NUR ---
discharge ambulance here ,pt transferred back to [facility] with discharge packet.arm band and saline lock removed.pt placed on o2 via nc at 2l/min.
== END 2016-08-04 21:38 | DRG 194 ==
LOC: SED 19:53 → STU 07-28 00:40
PROVIDERS: ADMIT Internal Medicine; ATTEND Internal Medicine
DX: I13.0 Hypertensive heart and chronic kidney disease with heart failure and stage 1 through stage 4 chronic kidney disease, or unspecified chronic kidney disease (principal); N18.4 Chronic kidney disease, stage 4 (severe); I42.0 Dilated cardiomyopathy; Z68.43 Body mass index [BMI] 50.0-59.9, adult; E66.01 Morbid (severe) obesity due to excess calories; G47.33 Obstructive sleep apnea (adult) (pediatric); Z86.73 Personal history of transient ischemic attack (TIA), and cerebral infarction without residual deficits; Z88.8 Allergy status to other drugs, medicaments and biological substances; Z99.3 Dependence on wheelchair; Z22.322 Carrier or suspected carrier of Methicillin resistant Staphylococcus aureus; I50.43 Acute on chronic combined systolic (congestive) and diastolic (congestive) heart failure
CPT/HCPCS: 36415; 71010; 80048; 80053; 81003; 82550-TC; 83036; 83605; 83735-TC; 83880; 84443-TC; 84484; 85025; 85610-TC; 85730-TC; 87040-TC; 87081; 93005; 96374; 97110-GP; 97116-GP; 97530-GP; 99285; J1644; J1940; J2270; J7060